=== PATIENT | male | born 1985 | race Caucasian/White ===

== ENCOUNTER 2022-02-21 14:29 | Outpatient (CLI) | payer BC, SELFPAY ==
[2022-02-21 20:09] LABS: Hemoglobin 16.8 g/dL (14.0-18.0); Mean Corpuscular Hemoglobin 31.6 pg (26-34); Mean Corpuscular Volume 90.4 fl (80-100); Mean Platelet Volume 10.3 fl (7.4-10.4); Platelet Count Result 303 k/mm3 (150-375); Red Blood Count 5.31 M/mm3 (4.6-6.20); Red Cell Distribution Width 12.7 % (11.5-14.5); White Blood Count 7.7 K/mm3 (4.5-10.0)
[2022-02-21 20:15] LABS: Alanine Aminotransferase 29 U/L (6-50); Alkaline Phosphatase 106 U/L (38-126); Anion Gap 10 mmol/L (8-16); Aspartate Amino Transferase 21 U/L (17-59); Bilirubin,Total 0.8 mg/dL (0.2-1.3); Blood Urea Nitrogen 11 mg/dL (9-20); Carbon Dioxide 26 mmol/L (22-30); Chloride 104 mmol/L (98-107); Cholesterol 219 mg/dL (0-200); Estimated Glomerular Filt Rate > 60; Glucose 93 mg/dL (65-110); HDL Direct 38 mg/dL; Potassium 4.7 mmol/L (3.4-5.0); Sodium 140 mmol/L (137-145); Triglycerides 220 mg/dL (<150)
[2022-02-21 20:25] LABS: LDL Cholesterol Direct 144 mg/dL
[2022-02-24 11:31] LABS: PSA, Free 0.18 ng/mL; PSA, Total 0.7 ng/mL (<=4.0)
== END 2022-02-21 14:30 | disposition home or self-care (01) ==
PROVIDERS: PCP Family Medicine; Visit Provider Family Medicine
DX: Z12.5 Encounter for screening for malignant neoplasm of prostate (principal); R35.0 Frequency of micturition; F41.9 Anxiety disorder, unspecified; G43.909 Migraine, unspecified, not intractable, without status migrainosus
CPT/HCPCS: 36415; 80053; 80061; 84153; 84154; 85027

== ENCOUNTER 2023-08-29 11:07 | Emergency (ER) | payer BC, SELFPAY ==
[2023-08-29 11:17] VITALS: BP 159/100; PULSE 85; RESP 18; TEMP 36.6; O2SAT 100
[2023-08-29 11:18] VITALS: BP 159/100; PULSE 85; RESP 18; TEMP 36.6; O2SAT 100
--- NOTE | 2023-08-29 11:27 | ED.ABDPAIN ---
HPI - Abdominal Pain General Chief Complaint: Abdominal Pain Stated Complaint: R SIDED ABD PAIN Time Seen by Provider: 08/29/23 11:27 Source: patient and RN notes reviewed Mode of arrival: ambulatory Limitations: no limitations History of Present Illness HPI narrative: 38-year-old male presented for complaint of intermittent right lower quadrant abdominal pain for about 5 days. Pain increases with certain movements such as coughing, bending over or with bumps on the car ride. Also reports the site is tender when he pushes on the area. He denies associated nausea, vomiting, diarrhea, fevers or chills. Denies history of abdominal surgeries. Last meal was last night. LBM today. Related Data Home Medications Medication Instructions Recorded Confirmed No Home Medications 08/29/23 08/29/23 Allergies Allergy/AdvReac Type Severity Reaction Status Date / Time No Known Allergies Allergy Unverified 08/05/18 14:57 Review of Systems Review of Systems: CONSTITUTIONAL: Denies body aches, fever, chills ENT: Denies rhinorrhea, congestion CARDIOVASCULAR: Denies chest pain, palpitations, or edema. RESPIRATORY: Denies cough or dyspnea. GASTROINTESTINAL: Endorses RLQ abdominal pain, Denies nausea, vomiting, diarrhea, hematochezia, melena GENITOURINARY: Denies dysuria, hematuria, or CVA tenderness. SKIN: Denies rash, itching, or wounds. MUSCULOSKELETAL: Denies back pain, joint pain, or myalgia. NEUROLOGIC: Denies headache, numbness, tingling, or weakness. All systems reviewed & are unremarkable except as noted in HPI and below PMFSH Past Medical History Medical History (Updated 08/29/23 @ 11:39 by Kierra Gómez APRN) No pertinent past medical history Comments At time of signature, I have reviewed and agree with nursing past medical, surgical, social and family history unless otherwise noted. Please see nursing chart for further information. There is no relevant family history pertinent to the presenting complaint Exam Narrative: GENERAL: Well-appearing, and in no acute distress. EYES: EOMI. Conjunctivae normal. ENT: Mucous membranes pink and moist. CHEST: No respiratory distress. Clear to auscultation. HEART: Regular rate and rhythm. No murmur appreciated. Normal peripheral pulses. ABDOMEN: abd soft, nondistended, hypo active bowel sounds. Tender abdomen RLQ; No guarding, rebound tenderness, asymmetry discoloration or rigidity. EXTREMITIES: Normal range of motion. No edema. SKIN: Warm, dry, no rash. Capillary refill normal. Normal skin turgor. NEURO: No focal deficits. Alert and oriented x3. PSYCH: Normal affect. Course Course Emergency Course: Patient is aware of diagnosis, understands and agrees to treatment plan. Anticipatory guidance given. Patient agrees to follow-up as directed and is aware of reasons to seek care at the emergency department. Portions of this record may have been created with voice recognition software Level of Care: Express Care Visit Vital Signs Vital signs: Vital Signs Temperature 97.9 F 08/29/23 11:17 Pulse Rate 85 08/29/23 11:17 Respiratory Rate 18 08/29/23 11:17 Blood Pressure 159/100 H 08/29/23 11:17 Pulse Oximetry 100 08/29/23 11:17 Oxygen Delivery Room Air 08/29/23 11:17 Temperature 97.9 F 08/29/23 11:18 Pulse Rate 85 08/29/23 11:18 Respiratory Rate 18 08/29/23 11:18 Blood Pressure 159/100 H 08/29/23 11:18 Pulse Oximetry 100 08/29/23 11:18 Oxygen Delivery Room Air 08/29/23 11:18 MDM - Abdominal Pain MDM Narrative Medical decision making narrative: Pt presented for c/o RLQ abdominal pain x5 days, worse with certain movements. Advised ER transfer for further evaluation. Differential Diagnosis Differential diagnosis: Likely abdominal pain, acute appendicitis, calculus of kidney, constipation, diverticulitis, gastroenteritis and small bowel obstruction Discharge Plan Discharge Clinical Impression: Ac
== END 2023-08-29 11:43 | disposition short-term general hospital (02) ==
PROVIDERS: Emergency Provider Nurse Practitioner Family
DX: R10.31 Right lower quadrant pain (principal); I10 Essential (primary) hypertension
CPT/HCPCS: 99212; G0463

== ENCOUNTER 2023-08-29 12:04 | Emergency (ER) | payer BC, SELFPAY ==
--- NOTE | ~2023-08-29 | CT_ITS ---
EXAMINATION: CT abdomen pelvis w con DATE: 08/29/2023 16:00 INDICATION: Right lower quadrant pain. TECHNIQUE: Computed tomography (CT) of the abdomen and pelvis was performed with 100 cc Omnipaque 350 intravenous contrast. The dose-length product was 962.52 mGy-cm. Automated exposure control and iter ative reconstruction technique were employed. COMPARISON: None. FINDINGS: There is a densely calcified granuloma right lower lobe. Otherwise, lung bases unremarkable . Heart size normal. No significant pleural or pericardial effusion. Normal appendix. Nonobstructive bowel gas pattern. Colonic diverticulosis without evidence for diverticulitis. No hydronephrosis. Sma ll fat-containing left inguinal hernia. The liver, spleen, pancreas, adrenal glands and kidneys are unremarkable. Gallbladder is present. No free air or free fluid. No significant vascular abnormality. No lymphadenopathy. No acute osseous abn ormality. IMPRESSION: 1. No acute abdominal abnormality. Reviewed, dictated and finalized at location B. INATION EQUIPMENT OPERATOR
[2023-08-29 12:20] VITALS: BP 174/97; PULSE 88; RESP 16; TEMP 36.9; O2SAT 100
--- NOTE | 2023-08-29 15:07 | ED.ABDPAIN ---
HPI - Abdominal Pain General Chief Complaint: Abdominal Pain Stated Complaint: abd pain Time Seen by Provider: 08/29/23 14:46 History of Present Illness HPI narrative: Patient is a 38-year-old male who presents ER with right lower quadrant abdominal pain. Ongoing for the last 4-5 days. Sharp. No radiation. Worse with going over bumps in the car and with bending and moving. Reports he has been doing some moving recently but does not recall any injury. No urinary symptoms. No diarrhea or constipation. He has felt bloated. Related Data Allergies Allergy/AdvReac Type Severity Reaction Status Date / Time No Known Allergies Allergy Unverified 08/05/18 14:57 Review of Systems Review of Systems: All systems reviewed & are unremarkable except as noted in HPI and below Constitutional: Constitutional: Reports no additional constitutional complaints ENT: Reports system reviewed and no additional complaints, except as documented Gastrointestinal: Gastrointestinal: Reports no additional gastrointestinal complaints Genitourinary: Genitourinary: Reports no additional male genitourinary complaints PMFSH Past Medical History Medical History (Updated 08/29/23 @ 16:29 by Mack Sims MD) No pertinent past medical history Surgical History Surgical History (Updated 08/29/23 @ 15:08 by Mack Sims MD) No history of previous surgery Exam Narrative: GENERAL: Well-appearing, well-nourished, and in no acute distress. HEAD: Normocephalic, atraumatic. ENT: Mucous membranes moist. CHEST: Clear to auscultation. No respiratory distress. HEART: Regular rate and rhythm. Normal peripheral pulses. ABDOMEN: Soft, mild tenderness bilateral lower quadrants right greater than nondistended. EXTREMITIES: Normal range of motion. No edema. NEURO: Alert and oriented x3. PSYCH: Normal mood and affect. Course Course Emergency Course: Unremarkable workup. May have muscle strain. Discharge home with anti-inflammatories muscle anxious. Vital Signs Vital signs: Vital Signs Temperature 98.4 F 08/29/23 12:20 Pulse Rate 88 08/29/23 12:20 Respiratory Rate 16 08/29/23 12:20 Blood Pressure 174/97 H 08/29/23 12:20 Pulse Oximetry 100 08/29/23 12:20 Oxygen Delivery Room Air 08/29/23 12:20 Temperature 98.4 F 08/29/23 12:20 Pulse Rate 88 08/29/23 12:20 Respiratory Rate 16 08/29/23 12:20 Blood Pressure 174/97 H 08/29/23 12:20 Pulse Oximetry 100 08/29/23 12:20 Oxygen Delivery Room Air 08/29/23 12:20 MDM - Abdominal Pain Lab Data 08/29/23 15:15 08/29/23 15:15 Labs: Lab Results 08/29/23 Range/Units 15:15 WBC 6.6 (4.5-10.0) K/mm3 RBC 5.05 (4.6-6.20) M/mm3 Hgb 16.1 (14.0-18.0) g/dL Hct 44.9 (42.0-52.0) % MCV 88.9 (80-100) fl MCH 31.9 (26-34) pg MCHC 35.9 (32-36) g/dl RDW 11.7 (11.5-14.5) % Plt Count 237 (150-375) k/mm3 MPV 10.7 H (7.4-10.4) fl Immature Gran % (Auto) 0.2 (0-0.5) % Neut % (Auto) 67.5 (45.5-73.1) % Lymph % (Auto) 24.9 (18.3-44.2) % Cross % (Auto) 5.6 (2.6-8.5) % Eos % (Auto) 1.5 (0-4.4) % Baso % (Auto) 0.3 (0.2-1.2) % Lymph # (Auto) 1.64 (0.9-3.2) K/mm3 Cross # (Auto) 0.4 (0.1-0.6) K/mm3 Eos # (Auto) 0.1 (0-0.3) K/mm3 Baso # (Auto) 0.0 (0.0-0.1) K/mm3 Abs Immat Gran (auto) 0.01 (0.00-0.031) K/mm3 Absolute Neuts (auto) 4.4 (1.3-6.7) K/mm3 Absolute Nucleated RBC 0.0 (0.0-0.012) K/mm3 Nucleated RBC % 0.0 (0.0-0.2) % Sodium 139 (137-145) mmol/L Potassium 3.8 (3.4-5.0) mmol/L Chloride 103 (98-107) mmol/L Carbon Dioxide 26 (22-30) mmol/L Anion Gap 10 (8-16) mmol/L BUN 11 (9-20) mg/dL Creatinine 0.80 (0.7-1.3) mg/dL Estim Creat Clear Calc 116 ml/min Estimated GFR > 60 (59 - ) Glucose 90 (65-110) mg/dL Calcium 9.6 (8.4-10.2) mg/dL Total Bilirubin 0.7 (0.2-1.3) mg/dL AST 26 (17-59) U/L ALT 33 (6-50) U/L Alkalin
[2023-08-29 15:31] LABS: Basophils Percent Auto 0.3 % (0.2-1.2); Eosinophils Absolute Auto 0.1 K/mm3 (0-0.3); Eosinophils Percent Auto 1.5 % (0-4.4); Hematocrit 44.9 % (42.0-52.0); Hemoglobin 16.1 g/dL (14.0-18.0); Immature Granulocyte Absolute 0.01 K/mm3 (0.00-0.031); Immature Granulocyte Percent A 0.2 % (0-0.5); Lymphocytes Absolute Auto 1.64 K/mm3 (0.9-3.2); Lymphocytes Percent Auto 24.9 % (18.3-44.2); Mean Corpuscular HGB Conc 35.9 g/dl (32-36); Mean Corpuscular Hemoglobin 31.9 pg (26-34); Mean Corpuscular Volume 88.9 fl (80-100); Mean Platelet Volume 10.7 fl (7.4-10.4); Monocytes Absolute Auto 0.4 K/mm3 (0.1-0.6); Monocytes Percent Auto 5.6 % (2.6-8.5); Neutrophils Absolute Auto 4.4 K/mm3 (1.3-6.7); Neutrophils Percent Auto 67.5 % (45.5-73.1); Platelet Count Result 237 k/mm3 (150-375); Red Blood Count 5.05 M/mm3 (4.6-6.20); Red Cell Distribution Width 11.7 % (11.5-14.5); White Blood Count 6.6 K/mm3 (4.5-10.0)
[2023-08-29 15:33] LABS: Appearance Urine Clear (Clear); Bilirubin Urine Negative (Negative); Blood Urine Negative (Negative); Color Urine Yellow (Yellow); Glucose Urine UA Negative (Negative); Ketones Urine Negative (Negative); Leukocyte Esterase Ur Negative LEU/UL (Negative); Nitrate Urine Negative (Negative); Protein Urine Negative (Negative); Specific Grav Ur 1.026 (1.001-1.035); Urobilinogen Urine 0.2 mg/dL (<2.0); pH Urine 5.5 (5.0-9.0)
[2023-08-29 15:37] LABS: Add Urine Microscopic? NO
[2023-08-29 15:46] LABS: Alanine Aminotransferase 33 U/L (6-50); Albumin Level 4.7 g/dL (3.5-5.1); Alkaline Phosphatase 86 U/L (38-126); Anion Gap 10 mmol/L (8-16); Aspartate Amino Transferase 26 U/L (17-59); Bilirubin,Total 0.7 mg/dL (0.2-1.3); Blood Urea Nitrogen 11 mg/dL (9-20); Calcium 9.6 mg/dL (8.4-10.2); Carbon Dioxide 26 mmol/L (22-30); Chloride 103 mmol/L (98-107); Estimated CRCL calculation 116 ml/min; Estimated Glomerular Filt Rate > 60; Glucose 90 mg/dL (65-110); Potassium 3.8 mmol/L (3.4-5.0); Sodium 139 mmol/L (137-145)
--- NOTE | 2023-08-29 15:50 | PC.NURSE ---
pt to ct via wheelchair.
== END 2023-08-29 16:38 | disposition home or self-care (01) ==
PROVIDERS: Emergency Provider Emergency Medicine
DX: S39.011A Strain of muscle, fascia and tendon of abdomen, initial encounter (principal); X58.XXXA Exposure to other specified factors, initial encounter
CPT/HCPCS: 36415; 74177; 80053; 81003; 85025; 99284; Q9967

== ENCOUNTER 2023-09-26 18:43 | Emergency (ER) | payer BC, SELFPAY ==
--- NOTE | ~2023-09-26 | CT_ITS ---
EXAMINATION: CT abdomen pelvis w con DATE: 09/26/2023 22:44 INDICATION: Left lower quadrant abdominal pain. TECHNIQUE: Computed tomography (CT) of the abdomen and pelvis was performed with 100 mL Omnipaque 350 intravenous contrast. Automated exposure control and iterative reconstruction technique were employe d. The dose-length product was 849.59 mGy-cm. COMPARISON: CT abdomen and pelvis 08/29/2023 FINDINGS: The visualized portions of the lung bases demonstrate mild atelectasis. A calcified right l srini nodule is consistent with old granulomatous disease. No pleural effusion. The heart size is sarah l. No pericardial effusion. The liver, gallbladder, spleen, pancreas, adrenal glands, and kidneys are normal. There are no dilated loops of bowel. The appendix is normal. There is fat stranding around a n epiploic appendage of descending colon, consistent with epiploic appendagitis. There are no patholo gically enlarged lymph nodes. There is no free intraperitoneal fluid. There is moderate lower lumbar spondylosis. IMPRESSION: 1. Epiploic appendagitis of descending colon. Reviewed, dictated and finalized at location E. DERRICK OPERATOR
[2023-09-26 18:48] VITALS: BP 180/91; PULSE 104; RESP 18; TEMP 36.8; O2SAT 100
[2023-09-26 22:16] VITALS: BP 164/105; PULSE 74; RESP 17; O2SAT 100
[2023-09-26 22:24] LABS: Basophils Percent Auto 0.4 % (0.2-1.2); Eosinophils Absolute Auto 0.2 K/mm3 (0-0.3); Eosinophils Percent Auto 1.9 % (0-4.4); Hematocrit 45.1 % (42.0-52.0); Hemoglobin 15.6 g/dL (14.0-18.0); Immature Granulocyte Absolute 0.01 K/mm3 (0.00-0.031); Immature Granulocyte Percent A 0.1 % (0-0.5); Lymphocytes Absolute Auto 2.43 K/mm3 (0.9-3.2); Lymphocytes Percent Auto 26.2 % (18.3-44.2); Mean Corpuscular HGB Conc 34.6 g/dl (32-36); Mean Corpuscular Hemoglobin 31.5 pg (26-34); Mean Corpuscular Volume 91.1 fl (80-100); Mean Platelet Volume 10.3 fl (7.4-10.4); Monocytes Absolute Auto 0.6 K/mm3 (0.1-0.6); Monocytes Percent Auto 6.2 % (2.6-8.5); Neutrophils Percent Auto 65.2 % (45.5-73.1); Platelet Count Result 245 k/mm3 (150-375); Red Blood Count 4.95 M/mm3 (4.6-6.20); Red Cell Distribution Width 12.3 % (11.5-14.5); White Blood Count 9.3 K/mm3 (4.5-10.0)
[2023-09-26 22:36] LABS: Alanine Aminotransferase 40 U/L (6-50); Albumin Level 4.5 g/dL (3.5-5.1); Alkaline Phosphatase 95 U/L (38-126); Anion Gap 10 mmol/L (8-16); Aspartate Amino Transferase 28 U/L (17-59); Bilirubin,Total 0.7 mg/dL (0.2-1.3); Blood Urea Nitrogen 14 mg/dL (9-20); Calcium 9.6 mg/dL (8.4-10.2); Carbon Dioxide 26 mmol/L (22-30); Chloride 103 mmol/L (98-107); Estimated CRCL calculation 99 ml/min; Estimated Glomerular Filt Rate > 60; Glucose 105 mg/dL (65-110); Lipase 127 U/L (23-300); Sodium 139 mmol/L (137-145)
[2023-09-26] MEDS: SODIUM CHLORIDE 0.9% IV 1,000 ML 999 ML IV CONT (22:53)
--- NOTE | 2023-09-26 22:54 | ED.GENADULT ---
[facility] General Adult General Chief complaint: Abdominal Pain Stated complaint: LLQ pain Time Seen by Provider: 09/26/23 22:07 Source: patient Mode of arrival: ambulatory Limitations: no limitations History of Present Illness HPI narrative: This is a 38-year-old male who presents to the ED with chief complaint of left lower quadrant pain beginning 2 days ago. Reports the pain is gotten worse today and he was unable to work. Reports that he had this problem few weeks ago and had negative workup. Denies problems with bowel movements, urinary symptoms, fevers, chills, nausea, vomiting. Related Data Allergies Allergy/AdvReac Type Severity Reaction Status Date / Time No Known Allergies Allergy Unverified 08/05/18 14:57 Review of Systems Review of Systems: All systems as dictated in [facility] Past Medical History Medical History (Updated 09/27/23 @ 01:26 by Nickolas Pedersen PA-C) No pertinent past medical history Surgical History Surgical History (Updated 08/29/23 @ 15:08 by Mack Sims MD) No history of previous surgery Exam Narrative: GENERAL: Well-appearing, well-nourished, and in no acute distress. HEAD: Normocephalic, atraumatic. EYES: PERRLA and EOMI. ENT: Nares clear, no rhinorrhea or epistaxis. Mucous membranes moist. Oropharynx without tonsillar hypertrophy exudate or other lesions. NECK: Supple. No adenopathy or masses. CHEST: No respiratory distress. Clear to auscultation. No wheezes rales or rhonchi HEART: Regular rate and rhythm. No murmur heard. Normal peripheral pulses. ABDOMEN: Left lower quadrant tenderness present. Soft, nondistended, normal active bowel sounds. MSK: Normal range of motion. No edema. SKIN: Warm, dry, no rash. NEURO: Alert and oriented x3. No focal deficits. PSYCH: Normal mood and affect. Course Vital Signs Vital signs: Vital Signs Temperature 98.3 F 09/26/23 18:48 Pulse Rate 104 H 09/26/23 18:48 Respiratory Rate 18 09/26/23 18:48 Blood Pressure 180/91 H 09/26/23 18:48 Pulse Oximetry 100 09/26/23 18:48 Temperature 98.3 F 09/26/23 18:48 Pulse Rate 91 09/27/23 01:34 Respiratory Rate 16 09/27/23 01:34 Blood Pressure 158/96 H 09/27/23 01:34 Pulse Oximetry 98 09/27/23 01:34 Medical Decision Making MDM Narrative Medical decision making narrative: This is a 38-year-old male who presents to the ED with chief complaint of left lower quadrant abdominal pain for the past couple of days. Vitals show initial slight tachycardia and elevated blood pressure likely due to pain. Afebrile. Exam shows focal left lower quadrant tenderness present. Lab work shows normal white count and a normal CMP. Urinalysis unremarkable. CT abdomen pelvis with IV contrast shows epiploic appendagitis of the descending colon. Overall this most likely relates with patient's symptoms. He was given Toradol and morphine here with good relief. We discussed that this should self resolve over the next couple of weeks with regular NSAID use. Pt will be discharged in stable condition. Return precautions given and supportive measures discussed. Pt is understanding and agreeable with plan for discharge and follow-up with PCP. Vital Signs Vital Signs: Vital Signs Temperature 98.3 F 09/26/23 18:48 Pulse Rate 104 H 09/26/23 18:48 Respiratory Rate 18 09/26/23 18:48 Blood Pressure 180/91 H 09/26/23 18:48 Pulse Oximetry 100 09/26/23 18:48 Temperature 98.3 F 09/26/23 18:48 Pulse Rate 91 09/27/23 01:34 Respiratory Rate 16 09/27/23 01:34 Blood Pressure 158/96 H 09/27/23 01:34 Pulse Oximetry 98 09/27/23 01:34 Lab Data 09/26/23 22:16 09/26/23 22:17 Labs: Lab Results 09/26/23 09/26/23 09/26/23 Range/Units 22:16 22:17 22:21 WBC 9.3 (4.5-10.0) K/mm3 RBC 4.95 (4.6-6.20) M/mm3 Hgb 15.6 (14.0-18.0) g/dL Hct 45.1 (42.0-52.0) % MCV 91.1 (80-100) fl MCH 31.5
[2023-09-26 23:05] LABS: Appearance Urine Clear (Clear); Bacteria Urine None Seen /hpf; Bilirubin Urine Negative (Negative); Blood Urine Negative (Negative); Color Urine Yellow (Yellow); Glucose Urine UA Negative (Negative); Ketones Urine Negative (Negative); Leukocyte Esterase Ur Trace LEU/UL (Negative); Nitrate Urine Negative (Negative); Non Pathogenic Casts 0-2; Protein Urine Trace mg/dL (Negative); RBC Urine 0-2 /hpf (0-2); Specific Grav Ur 1.034 (1.001-1.035); Squamous Epithelial Cell Urine None seen /hpf (Few)
[2023-09-26 23:08] LABS: Lactic Acid Reflex 0.9 mmol/L (0.7-2.0)
[2023-09-26] MEDS: KETOROLAC 15 MG/ML VIAL (*BKC) IV PUSH (23:14)
[2023-09-26 23:16] VITALS: BP 166/105; PULSE 72; RESP 16; O2SAT 100
[2023-09-26 23:17] LABS: Add Urine Microscopic? YES
--- NOTE | 2023-09-26 23:21 | PC.NURSE ---
gave pt care and report given to HEMAL Vasquez. all questions answered
[2023-09-26] MEDS: MORPHINE SULFATE (*CRX) 4 MG/ML INJ IV PUSH (23:40)
[2023-09-27 01:34] VITALS: BP 158/96; PULSE 91; RESP 16; O2SAT 98
== END 2023-09-27 01:35 | disposition home or self-care (01) ==
PROVIDERS: Emergency Provider Physician Assistant
DX: K63.89 Other specified diseases of intestine (principal)
CPT/HCPCS: 36415; 74177; 80053; 81001; 83605; 83690; 85025; 87086; 96361; 96374; 96375; 99284; J1885; J2270; J7030; Q9967

== ENCOUNTER 2024-10-08 15:18 | Emergency (ER) | payer BC, SELFPAY ==
[2024-10-08 15:19] VITALS: BP 150/115; PULSE 136; RESP 18; TEMP 38.9; O2SAT 95
--- NOTE | 2024-10-08 15:21 | PC.NURSE ---
covid culture sent to lab
--- OUTSIDE RECORDS SUMMARY | 2024-10-08 15:50 | XMS_ITS | Referral Summary ---
Author Organization [facility] Address [address] [place] [address] Care Team Providers Care Fur Plucker Name Role Phone No, Physician Primary Care Provider [phone] Allergies No known active allergies Medications ALPRAZolam (XANAX) 0.25 mg tablet Take 0.25 mg by mouth 2 (two) times a day as needed 11/22/2016 Active venlafaxine XR (EFFEXOR-XR) 75 mg 24 hr capsule Take 75 mg by mouth 06/11/2017 Active SUMAtriptan (IMITREX) 100 mg tablet Take 100 mg by mouth daily as needed 11/22/[address] (PROTONIX) 40 mg EC tablet Take 1 tablet (40 mg total) by mouth daily 30 tablet 11 06/13/2021 Active Active Problems Problem Noted Date Diagnosed Date BMI 33.0-33.9,adult 07/06/2021 Hepatomegaly 05/28/2021 Hepatic steatosis 05/28/2021 Epigastric pain 05/06/2021 Gastroesophageal reflux disease 05/06/2021 Hypersomnia 07/13/2015 Snoring 07/13/2015 Alcohol use 11/28/2012 Overview (05/06/2021): Binge pattern Chronic depression 11/28/2012 Overview (05/06/2021): Since childhood Anxiety and some panic zoloft at 50 mg didn't work Celexa 40 didn't work Euthyroid 03/2013 Migraine with aura and witho ut status migrainosus, not intractable 11/28/2012 Overview (05/06/2021): zoloft effective at prophylaxis. Lateral epicondylitis 01/12/2009 Overview (05/06/2021): Dr. Bhatia Essential hypertension 07/13/2008 Overview (04/29/2021): DASH diet handout 08/10 Family history of colon cancer 07/13/2008 Overview (05/06/2021): Sister age 16 Patellofemoral pain syndrome 07/13/2008 Resolved Problems Problem Noted Date Diagnosed Date Resolved Date Hematemesis with nausea 05/18/202111/2020 Loose stools 05/06/2021 07/06/2021 Tobacco use disorder 07/13/2008 021 Social History Tobacco Use Types Packs/Day Years Used Date Smoking Tobacco: Never Smokeless Tobacco: Never Alcohol Use Standard Drinks/Week Comments Not Currently 0 (1 standard drink = 0.6 oz pur e alcohol) AUDIT-C Answer Date Recorded Q1: How often do you have a drink containing alc ohol? Never 06/10/2021 Average Number of Drinks Not on file 021 Frequency of Binge Drinking Not on file 04/2021 Personal Safety Answer Date Recorded Getting School Help Needed Not on file 11/03 Sex and Gender Information Value Date Recorded Sex Assigned at Not on file Legal Sex Male 8:37 AM CDT Gender Identity Male 05/27/2021 8:59 AM CDT Sexual Orientation Not on file Last Filed Vital Signs Vital Sign Reading Time Taken Comments Blood Pressure 118/82 07/06/2021 8:59 AM CDT Pulse 92 07/06/2021 8:59 AM CDT Temperature 36.6 C (97.8 F) 06/10/2021 1:00 PM CDT Respiratory Rate 18 06/10/2021 1:00 PM CDT Oxygen Saturation 99% 07/06/2021 8:59 AM CDT Inhaled Oxygen Concentration - - Weight 94.9 kg (209 lb 3.2 oz) 07/06/2021 8:59 A M CDT Height 167.6 cm (5' 6 ) 07/06/2021 8:59 AM CDT Body Mass Index 33.77 07/06/2021 8:59 AM CDT Plan of Treatment Not on file Insurance [facility] Advance Directives For more information, please contact: [phone] * Full Code (Latest Code Status on File) Date Activated Date Inactivated Comments 06/10/2021 11:26 AM 06/10/2021 5:25 PM * Full Code Date Activated Date Inactivated Comments 06/10/2021 11:26 AM 06/10/2021 11:26 AM Care Teams Fur Plucker Relationship Specialty Start Date End Date No, Physician PCP - General 04/29/21
--- OUTSIDE RECORDS SUMMARY | 2024-10-08 15:50 | XMS_ITS | Encounter Summary ---
Author Organization [facility] Health Address [address] [place] [address] Care Team Providers Care Shopping Inspector Name Role Phone Nopcp, Patient Primary Care Provider Unavailterri e Ronal Elizondo MD Primary Care Provider [phone] Ronal Elizondo MD Unavailable [phone] Encounter Details Date Type Department Care Team (Late st Contact Info) Description 02/08/2009 [facility] Outpatient Visit [facility] Default [address] [place] [id number] Unknown, Provider Social History Tobacco Use Types Packs/Day Years Used Date Smoking Tobacco: Every Day Cigarettes 1 9 Alcohol Use Standard Drinks/Week Comments Yes 0 (1 standard drink = 0.6 oz pur e alcohol) Sex and Gender Information Value Date Recorded Sex Assigned at Not on file Gender Identity Not on file Sexual Orientation Not on file documented as of this encounter Plan of Treatment Not on file documented as of this encounter Visit Diagnoses Not on filedocumented in this encounter Care Teams Shopping Inspector Relationship Specialty Start Date End Date Nopcp, Patient PCP - General 04/01/09 04/01/09 Ronal Elizondo MD [address] [place] [address] PCP - General 09/21/08 03/31/09 Ronal Elizondo MD [address] [place] [address] PCP - Attributed-Exclusive Choice 02/16/17 06/10/18 documented as of this encounter
--- OUTSIDE RECORDS SUMMARY | 2024-10-08 15:50 | XMS_ITS | Referral Summary ---
Author Organization [facility] Address [address] [place] [address] Care Team Providers Care [employer] Name Role Phone Unavailable Primary Care Provider Unavailabl e Source Comments [facility],non-owned Affiliates and Associated Physician Practices is amultiple site organization consisting of ambulatory clinics and hospital sitesin [place], [place], [place]. This disclosure is being madepursuant to the Care Everywhere program and may not contain all information available regarding this patient. Last updated 18.PAX Streamline Allergies No known active allergies Medications * Be aware that medications may not be up to date on this document. Alwaysverify current medications with the patient. Medication Sig Dispensed Refills Start Date End Date Status ALPRAZolam (XANAX) 0.25 MG tablet Take 1 Tab by mouth 2 times daily as needed For anxiety. 30 Tab 11/22/2016 Active Additional Information Patient not taking.Reported on 10/09/2023 SUMAtriptan (IMITREX) 100 MG tabletIndications:Mi graine Take 1 Tab by mouth once as needed for Migraine May repeat in 2 hours. Maximum 2 pills in 24 hours Reasons: Migraine Headache 9 Tab 5 11/22/2016 Active Additional Information Patient not taking.Reported on 10/09/2023 venlafaxine XR 24hr (EFFEXOR XR) 75 MG capsule Take 1 Cap by mouth daily with breakfast 90 Cap 1 06/11/2017 Active Additional Information Patient not taking.Reported on 10/09/2023 venlafaxine XR 24hr (EFFEXOR XR) 150 MG capsule Take 1 Cap by mouth daily with breakfast 90 Cap 1 06/11/2017 Active Additional Information Patient not taking.Reported on 10/09/2023 losartan (Cozaar) 25 MG tablet Take 1 (one) tablet by mouth once daily Active Active Problems Problem Noted Date Diagnosed Date Hypersomnia 07/13/2015 Snoring 07/13/2015 Alcohol use 11/28/2012 Overview (11/28/2012): Binge pattern Chronic depression 11/28/2012 Overview (11/20/2013): Since childhood Anxiety and some panic zoloft at 50 mg didn't work Celexa 40 didn't work Euthyroid 03/2013 Migraine with aura and witho ut status migrainosus, not intractable 11/28/2012 Overview (03/27/2013): zoloft effective at prophylaxis. Lateral epicondylitis 01/12/2009 Overview (01/12/2009): Dr. Bhatia Essential hypertension 07/13/2008 Overview (01/12/2009): [facility]ASH diet handout 08/10 Patellofemoral pain syndrome 07/13/2008 Tobacco use disorder 07/13/2008 Family history of colon cancer 07/13/2008 Overview (07/13/2008): Sister age 16 Resolved Problems Problem Noted Date Diagnosed Date Resolved Date Educational circumstance 07/13/200806/2015 Overview (07/13/2008): 8th grade education Immunizations Name Administration Dates Next Due INFLUENZA VACCINE, TRIV. (AF LURIA, FLUZONE TRIVALENT; 6MO+) (IIV3) 05/16/2013,05/25/2011 FLU VACCINE QUAD IIV4 PF ID 06/11/2015 INFLUENZA VACCINE, QUADR. (F LUZONE; FLULAVAL; FLUARIX; AFLURIA QUADRIVALENT; 6MO+), 0.5 ML (IIV4) 08/14/2014 PNEUMOCOCCAL PPSV23 11/28/2012 TD VACCINE 09/03/2002 TDAP (7yrs+) 05/25/2011 Social History Tobacco Use Types Packs/Day Years Used Date Smoking Tobacco: Every Day Cigarettes 0.5 9 Smokeless Tobacco: Former Quit: 06/03/2012 Tobacco Cessation:Ready to Q uit: Not Asked; Counseling Given: Not Answered Alcohol Use Standard Drinks/Week Comments Yes 4 (1 standard drink = 0.6 oz pure alcohol) 12 beer in 1 day every other week. Sex and Gender Information Value Date Recorded Sex Assigned at Not on file Gender Identity Not on file Sexual Orientation Not on file Last Filed Vital Signs Vital Sign Reading Time Taken Comments Blood Pressure 153/101 10/09/2023 11:34 AM GHOST WRITER Pulse 92 10/09/2023 11:34 AM GHOST WRITER Temperature 36.6 C (97.9 F) 10/09/2023 11:34 AM GHOST WRITER Respiratory Rate 16 12/05/2016 8:57 AM CDT Oxygen Saturation 98% 10/09/2023 11:34 AM GHOST WRITER Inhaled Oxygen Concentration - - Weight 97.5 kg (215 lb) 10/09/2023 11:34 AM GHOST WRITER Height 167.6 cm (5' 6 ) 10/09/2023 11:34 AM GHOST WRITER Body Mass Index 34.7 10/09/2023 11:34 AM GHOST WRITER Functional Status Functional Status Response Date of Assess ment Is person deaf or have serious hearing difficult y? No 12/05/2016 Is person blind or have serious difficulty seein g? No 12/05/2016 Does person have serious dif ficulty walking/climbing stairs? No 12/05/2016 Does person have difficulty dressing/bathing? No 12/05/2016 Does person have difficulty doing errands alone? No 12/05/2016 Cognitive Status Response Date of Assessm ent Does person have difficulty concentrating/remembering/making decisions? No 12/05/2016 Plan of Treatment Not on file Goals Goal Patient Goal Type Associated Problems Recent Progress Patient-Stated? Author Quit smoking / using tobacco Lifestyle Not on track(02/15/20 16 10:32 AM CDT) No Flaquita Decker MA Procedures Procedure Name Priority Date/Time Associated Diagnosis Comments COMPREHENSIVE METABOLIC PANEL Routine 02/15/2016 11:07 AM CDT Hypersomnia Chronic depression Migraine with aura and without status migrainosus, not intractable Tobacco use disorder Essential hypertension with goal blood pressure less than 140/90 LIPID PROFILE Routine 02/15/2016 11:07 AM CDT Hypersomnia Chronic depression Migraine with aura and without status migrainosus, not intractable Tobacco use disorder Essential hypertension with goal blood pressure less than 140/90 from Last 3 Months or Most Recently Relevant to Health Maintenance Results * COMPREHENSIVE METABOLIC PANEL (02/15/2016 11:07 AM CDT) Glucose 93 74 - 106 mg/dL [facility] ACCOUNT BILL BUN 10 7 - 21 mg/dL [facility] ACCOUNT BILL Creatinine 0.84 0.50 - 1.30 mg/dL [facility] ACCOUNT BILL eGFR by MDRD >60 >60 mL/min/1.7 3m2 [facility] ACCOUNT BILL eGFR by MDRD >60 >60 mL/min/1.7 3m2 [facility] ACCOUNT BILL Sodium 139 136 - 145 mmol/L [facility] ACCOUNT BILL Potassium 4.5 3.5 - 5.1 mmol/L [facility] ACCOUNT BILL Chloride 105 98 - 107 mmol/L [facility] ACCOUNT BILL CO2 27 22 - 31 mmol/L [facility] ACCOUNT BILL Calcium 9.6 8.5 - 10.1 mg/dL [facility] ACCOUNT BILL Protein Total 7.5 6.4 - 8.2 gm/dL [facility] ACCOUNT BILL Albumin 4.2 3.4 - 5.0 gm/dL [facility] ACCOUNT BILL Bilirubin Total 0.6 0.2 - 1.0 mg/dL [facility] ACCOUNT BILL Alkaline Phosphatase 91 38 - 126 U/L [facility] ACCOUNT BILL AST 13 5 - 40 U/L [facility] ACCOUNT BILL ALT 25 12 - 78 U/L [facility] ACCOUNT BILL Blood specimen (specimen) BLOOD SPECIMEN / Unknown 02/15/2016 11:07 AM CDT 02/15/2016 12:59 PM CDT Narrative Resulting Agency Comment [facility] [address] [id number] Ronal Elizondo MD LAB - CHEMISTRY HAROON ZHOU [facility] ACCOUNT BILL [address] [place] [address] * (ABNORMAL) LIPID PROFILE (02/15/2016 11:07 AM CDT) Cholesterol 188 <200 mg/dL [facility] ACCOUNT BILL Triglycerides 174(H) <150 mg/dL [facility] ACCOUNT BILL HDL Cholesterol 38(L) >40 mg/dL [facility] ACCOUNT BILL VLDL Calculated 35(H) <=30 mg/dL [facility] ACCOUNT BILL LDL Calculated 115 <130 mg/dL [facility] ACCOUNT BILL Blood specimen (specimen) BLOOD SPECIMEN / Unknown 02/15/2016 11:07 AM CDT 02/15/2016 12:59 PM CDT Narrative Resulting Agency Comment [facility] [address] [id number] Ronal Elizondo MD LAB - CHEMISTRY HAROON [facility]HOU [facility] ACCOUNT BILL [address] [place] [address] from Last 3 Months or Most Recently Relevant to Health Maintenance Advance Directives * Full Code (Latest Code Status on File) Date Activated Date Inactivated Comments 05/25/2011 10:27 AM Unplug if lilly PADILLA is Kenyetta Decker. Would do organ donation.
--- OUTSIDE RECORDS SUMMARY | 2024-10-08 15:50 | XMS_ITS | Patient Health Summary ---
Author Organization [facility] Address [address] [place] [address] Care Team Providers Care Digital Field Service Technician Name Role Phone Unavailable Primary Care Provider Unavailabl e Note from [facility],non-owned Affiliates and Associated Physician Practices is amultiple site organization consisting of ambulatory clinics and hospital sitesin [place], [place], [place] and [place]. This disclosure is being madepursuant to the Care Everywhere program and may not contain all information available regarding this patient. Last updated 18.[facility] Allergies No known active allergies Medications * Be aware that medications may not be up to date on this document. Alwaysverify current medications with the patient. * ALPRAZolam (XANAX) 0.25 MG tablet(Started 11/22/2016) Take 1 Tab by mouth 2 times daily as needed For anxiety. * SUMAtriptan (IMITREX) 100 MG tablet(Started 11/22/2016) Take 1 Tab by mouth once as needed for Migraine May repeat in 2 hours. Maximum 2 pills in 24 hours Reasons: Migraine Headache 5 refills remaining * venlafaxine XR 24hr (EFFEXOR XR) 75 MG capsule(Started 06/11/2017) Take 1 Cap by mouth daily with breakfast 1 refill remaining * venlafaxine XR 24hr (EFFEXOR XR) 150 MG capsule(Started 06/11/2017) Take 1 Cap by mouth daily with breakfast 1 refill remaining * losartan (Cozaar) 25 MG tablet Take 1 (one) tablet by mouth once daily Active Problems Problem Noted Date Diagnosed Date Hypersomnia 07/13/2015 Snoring 07/13/2015 Alcohol use 11/28/2012 Chronic depression 11/28/2012 Migraine with aura and witho ut status migrainosus, not intractable 11/28/2012 Lateral epicondylitis 01/12/2009 Essential hypertension 07/13/2008 Patellofemoral pain syndrome 07/13/2008 Tobacco use disorder 07/13/2008 Family history of colon cancer 07/13/2008 Resolved Problems Problem Noted Date Diagnosed Date Resolved Date Educational circumstance 07/13/200806/2015 Immunizations * INFLUENZA VACCINE, TRIV. (AFLURIA, FLUZONE TRIVALENT; 6MO+) (IIV3)(Given 05/16/2013, 05/25/2011) * FLU VACCINE QUAD IIV4 PF ID(Given 06/11/2015) * INFLUENZA VACCINE, QUADR. (FLUZONE; FLULAVAL; FLUARIX; AFLURIA QUADRIVALENT; 6MO+), 0.5 ML (IIV4)(Given 08/14/2014) * PNEUMOCOCCAL PPSV23(Given 11/28/2012) * TD VACCINE(Given 09/03/2002) * TDAP (7yrs+)(Given 05/25/2011) Social History Tobacco Use Types Packs/Day Years [...] Comments Blood Pressure 153/101 10/09/2023 11:34 AM TEST INSPECTION ENGINEER Pulse 92 10/09/2023 11:34 AM TEST INSPECTION ENGINEER Temperature 36.6 C (97.9 F) 10/09/2023 11:34 AM TEST INSPECTION ENGINEER Respiratory Rate 16 12/05/2016 8:57 AM CDT Oxygen Saturation 98% 10/09/2023 11:34 AM TEST INSPECTION ENGINEER Inhaled Oxygen Concentration - - Weight 97.5 kg (215 lb) 10/09/2023 11:34 AM TEST INSPECTION ENGINEER Height 167.6 cm (5' 6 ) 10/09/2023 11:34 AM TEST INSPECTION ENGINEER Body Mass Index 34.7 10/09/2023 11:34 AM TEST INSPECTION ENGINEER Procedures * CARDIAC RHYTHM STRIP ORDER(Performed 12/06/2016) * OXYGEN(Performed 12/05/2016) * RELEASE CARPAL TUNNEL(Performed 12/05/2016) Performed for Carpal tunnel syndrome of right wrist * AMB REFERRAL TO NEUROSURGERY(Performed 11/08/2016) Performed for Bilateral carpal tunnel syndrome * EMG(Performed 10/10/2016) Performed for Right arm numbness * LIPID PROFILE(Performed 02/15/2016) Performed for Hypersomnia, Chronic depression, Migraine with aura and without status migrainosus, not intractable, Tobacco use disorder, Essential hypertension with goal blood pressure less than 140/90 * CBC W AUTO DIFFERENTIAL(Performed 02/15/2016) Performed for Hypersomnia, Chronic depression, Migraine with aura and without status migrainosus, not intractable, Tobacco use disorder, Essential hypertension with goal blood pressure less than 140/90 * COMPREHENSIVE METABOLIC PANEL(Performed 02/15/2016) Performed for Hypersomnia, Chronic depression, Migraine with aura and without status migrainosus, not intractable, Tobacco use disorder, Essential hypertension with goal blood pressure less than 140/90 * MRI UPPER EXT ANY JOINT NON CONTRAST RIGHT(Performed 03/11/2015) Performed for Scaphoid fracture of wrist, right, closed, initial encounter * CT HEAD WO CONTRAST(Performed 03/05/2015) * XR WRIST RIGHT 3VW OR MORE(Performed 03/05/2015) * PATHOLOGY/CYTOLOGY REPORT ORDER(Performed 02/10/2015) * CBC W AUTO DIFFERENTIAL(Performed 02/05/2015) Performed for Sleep apnea, Flushing, Tobacco use disorder, Chronic depression, Bilateral carpal tunnel syndrome, Prehypertension * COMPREHENSIVE METABOLIC PANEL(Performed 02/05/2015) Performed for Sleep apnea, Flushing, Tobacco use disorder, Chronic depression, Bilateral carpal tunnel syndrome, Prehypertension * LIPID PROFILE(Performed 02/05/2015) Performed for Sleep apnea, Flushing, Tobacco use disorder, Chronic depression, Bilateral carpal tunnel syndrome, Prehypertension * COLONOSCOPY SCREEN(Performed 06/12/2014) * ENDOSCOPY, COLON, SCREENING(Performed 06/12/2014) * URINALYSIS NO MICROSCOPIC NO CULTURE(Performed 03/27/2013) Performed for Need for pneumococcal vaccine, Prehypertension, Tobacco use disorder, Chronic depression, Classic migraine * CBC W AUTO DIFFERENTIAL(Performed 03/27/2013) Performed for Need for pneumococcal vaccine, Prehypertension, Tobacco use disorder, Chronic depression, Classic migraine * TSH HI LOW REFLEX FREE T4(Performed 03/27/2013) Performed for Need for pneumococcal vaccine, Prehypertension, Tobacco use disorder, Chronic depression, Classic migraine * COMPREHENSIVE METABOLIC PANEL(Performed 03/27/2013) Performed for Need for pneumococcal vaccine, Prehypertension, Tobacco use disorder, Chronic depression, Classic migraine * LIPID PROFILE(Performed 05/25/2011) Performed for Need for influenza vaccine, Need for vaccine for TD (tetanus- diphtheria), Prehypertension, Tobacco use disorder, Lipid screening, Routine general medical examination at a health care facility, Furunculosis * URINALYSIS NO MICROSCOPIC NO CULTURE(Performed 05/25/2011) Performed for Need for influenza vaccine, Need for vaccine for TD (tetanus- diphtheria), Prehypertension, Tobacco use disorder, Lipid screening, Routine general medical examination at a health care facility, Furunculosis * CBC W AUTO DIFFERENTIAL(Performed 05/25/2011) Performed for Need for influenza vaccine, Need for vaccine for TD (tetanus- diphtheria), Prehypertension, Tobacco use disorder, Lipid screening, Routine general medical examination at a health care facility, Furunculosis * COMPREHENSIVE METABOLIC PANEL(Performed 05/25/2011) Performed for Need for influenza vaccine, Need for vaccine for TD (tetanus- diphtheria), Prehypertension, Tobacco use disorder, Lipid screening, Routine general medical examination at a health care facility, Furunculosis * CULTURE AEROBIC+GRAM STAIN(Performed 05/25/2011) Performed for Furunculosis * CULTURE STREP GROUP A(Performed 06/27/2009) * GROSS + MICRO EXAM(Performed 04/02/2009) Performed for Unspecified Cystitis * ENDOSCOPY, COLON, SCREENING(Performed 02/03/2009) Results * CARDIAC RHYTHM STRIP ORDER (12/06/2016 9:28 PM CDT) Narrative 12/06/2016 9:28 PM CDT Ordered by an unspecified provider. Scanned Document CARDIAC SERVICES ORD ERABLES * AMB REFERRAL TO NEUROSURGERY (11/08/2016 4:02 PM TEST INSPECTION ENGINEER) Ronal Elizondo MD OUTPATIENT REFERRALS * EMG (10/10/2016 9:04 PM TEST INSPECTION ENGINEER) Ronal Elizondo MD NEUROLOGY ORDERABLES * (ABNORMAL) CBC W AUTO DIFFERENTIAL (02/15/2016 11:07 AM CDT) Only the most recent of4 resultswithin the time period is included. WBC 6.8 4.4 - 10.7 x10E9/L [facility] ACCOUNT BILL RBC 4.83 3.80 - 5.40 x10E12/L [facility] ACCOUNT BILL Hemoglobin 15.5 12.0 - 17.6 gm/dL [facility] ACCOUNT BILL Hematocrit 44.3 35.2 - 51.7 % [facility] ACCOUNT BILL MCV 91.7 80.7 - 98.3 fL [facility] ACCOUNT BILL MCH 32.1 26.7 - 34.0 pg [facility] ACCOUNT BILL MCHC 35.0 30.8 - 35.9 gm/dL [facility] ACCOUNT BILL RDW 11.9(L) 12.1 - 14.9 % [facility] ACCOUNT BILL Platelet Count 232 153 - 416 x10E9/L [facility] ACCOUNT BILL Comment:MPV FL BLOOD (SSM) 1 0.8 fl 9.4-12.9 Granulocytes % 69.1 44.0 - 73.0 % [facility] ACCOUNT BILL Lymphocytes % 22.2 20.0 - 43.0 % [facility] ACCOUNT BILL Monocytes % 5.6 5.0 - 13.0 % [facility] ACCOUNT BILL Eosinophils % 2.2 0.0 - 6.0 % [facility] ACCOUNT BILL Basophils % 0.6 0.0 - 2.0 % [facility] ACCOUNT BILL Granulocytes Absolute 4.69 2.01 - 7.14 x10E9/L [facility] ACCOUNT BILL Lymphocytes Absolute 1.51 1.07 - 3.94 x10E9/L [facility] ACCOUNT BILL Monocytes Absolute 0.38 0.26 - 1.07 x10E9/L [facility] ACCOUNT BILL Eosinophils Absolute 0.15 0 - 0.47 x10E9/L [facility] ACCOUNT BILL Basophils Absolute 0.04 0 - 0.08 x10E9/L [facility] ACCOUNT BILL Immature Granulocytes 0.3 0 - 1 % [facility] ACCOUNT BILL Immature Granulocytes Absolute 0.02 0.00 - 0.06 x10E9/L [facility] ACCOUNT BILL nRBC 0 /100 WBC [facility] ACCOUNT BILL Blood specimen (specimen) BLOOD SPECIMEN / Unknown 02/15/2016 11:07 AM CDT 02/15/2016 12:59 PM CDT Narrative Resulting Agency Comment [facility] [address] [place] [address] [id number] Ronal Elizondo MD LAB - HEMATOLOGY ARRON ESPINO [facility] ACCOUNT BILL [address] [place] [address] * COMPREHENSIVE METABOLIC PANEL (02/15/2016 11:07 AM CDT) Only the most recent of4 resultswithin the time period is included. Glucose 93 74 - 106 mg/dL [facility] [...] 12:59 PM CDT Narrative Resulting Agency Comment [facility] [address] [place] [address] [id number] Ronal Elizondo MD LAB - CHEMISTRY HAROON ZHOU [facility] ACCOUNT BILL [address] [place] [address] * (ABNORMAL) LIPID PROFILE (02/15/2016 11:07 AM CDT) Only the most recent of3 resultswithin the time period is included. Cholesterol 188 <200 mg/dL [facility] ACCOUNT BILL Triglycerides 174(H) <150 mg/dL [facility] ACCOUNT BILL HDL Cholesterol 38(L) >40 mg/dL [facility] ACCOUNT BILL VLDL Calculated 35(H) <=30 mg/dL [facility] ACCOUNT BILL LDL Calculated 115 <130 mg/dL [facility] ACCOUNT BILL Blood specimen (specimen) BLOOD SPECIMEN / Unknown 02/15/2016 11:07 AM CDT 02/15/2016 12:59 PM CDT Narrative Resulting Agency Comment [facility] [address] [facility] [id number] Ronal Elizondo MD LAB - CHEMISTRY HAROON ZHOU [facility] ACCOUNT BILL [address] [place] [address] * MRI UPPER EXT ANY JOINT NON CONTRAST RIGHT (03/11/2015 8:26 AM CDT) Anatomical Region Laterality Modality Upper Extremity Magnetic Resonan ce 03/11/2015 2:59 PM CDT Impressions 03/11/2015 3:27 PM CDT 1. No MR evidence of acute fracture of the right wrist. Specifically, the scaphoid is intact. 2. There is mild edema within the volar aspect of the lunate which could represent an osseous contusion. 3. The central triangular fibers of the scapholunate ligament are irregular which could represent a tear. The dorsal and volar fibers appear intact without evidence of scapholunate diastases. If indicated, this could be further evaluated with arthrography. Narrative 03/11/2015 3:27 PM CDT Examination: MRI of the right wrist without contrast History: Right wrist pain and concern for scaphoid fracture. Findings: MRI of the right wrist was performed without intravenous contrast. Axial, and sagittal, and coronal short TR/TE and fast spin-echo images as well as coronal gradient recalled echo images were obtained. No radiographs are available for comparison. The patient's site of pain was marked with an MR compatible marker along the radial aspect of the wrist. There is marrow edema within the volar lip of the lunate without linear T1 hypointensity to suggest fracture. There is no marrow edema within the scaphoid to suggest acute scaphoid fracture. No acute fracture of the wrist is seen. On this non-arthrographic examination, the dorsal and volar fibers of the scapholunate ligament appear intact. There is irregularity of the central triangular portions of the scapholunate ligament which may indicate a tear. No scapholunate diastases is seen. The lunatotriquetral ligaments appear intact. Visualized extrinsic ligaments of the wrist appear intact. The triangular fibrocartilage appears intact. No definite focal chondrosis of the wrist is seen. The carpal tunnel and flexor tendons appear normal. The extensor tendons appear intact. No ganglion cyst is identified. There is mild soft tissue edema along the dorsal aspect of the wrist. Procedure Note Alex Winn MD - 03/11/2015 Examination: MRI of the right wrist without contrast History: Right wrist pain and concern for scaphoid fracture. Findings: MRI of the right wrist was performed without intravenous contrast. Axial, and sagittal, and coronal short TR/TE and fast spin-echo images as well as coronal gradient recalled echo images were obtained. No radiographs are available for comparison. The patient's site of pain was marked with an MR compatible marker along the radial aspect of the wrist. There is marrow edema within the volar lip of the lunate without linear T1 hypointensity to suggest fracture. There is no marrow edema within the scaphoid to suggest acute scaphoid fracture. No acute fracture of the wrist is seen. On this non-arthrographic examination, the dorsal and volar fibers of the scapholunate ligament appear intact. There is irregularity of the central triangular portions of the scapholunate ligament which may indicate a tear. No scapholunate diastases is seen. The lunatotriquetral ligaments appear intact. Visualized extrinsic ligaments of the wrist appear intact. The triangular fibrocartilage appears intact. No definite focal chondrosis of the wrist is seen. The carpal tunnel and flexor tendons appear normal. The extensor tendons appear intact. No ganglion cyst is identified. There is mild soft tissue edema along the dorsal aspect of the wrist. IMPRESSION 1. No MR evidence of acute fracture of the right wrist. Specifically, the scaphoid is intact. 2. There is mild edema within the volar aspect of the lunate which could represent an osseous contusion. 3. The central triangular fibers of the scapholunate ligament are irregular which could represent a tear. The dorsal and volar fibers appear intact without evidence of scapholunate diastases. If indicated, this could be further evaluated with arthrography. Remigio Herrera MD MR ORDERABLES * CT HEAD NON CONTRAST (03/05/2015) Anatomical Region Laterality Modality Head Other Provider Unknown CT ORDERABLES * XR WRIST 3+ VW RIGHT (03/05/2015) Anatomical Region Laterality Modality Wrist / Hand Other Provider Unknown DIAGNOSTIC IMAGING O RDERABLES * PATHOLOGY/CYTOLOGY REPORT ORDER (02/10/2015) Shayne Alvarado MD LAB - PATHOLOGY/CYTO LOGY ORDERABLES * ENDOSCOPY, COLON, SCREENING (06/12/2014 9:29 AM CDT) Report Endoscopy POC __ _ Patient Name: Andrew Decker Procedure Date: 06/12/2014 9:29 AM Date of : 1985 Admit Type: Outpatient Age: 28 Gender: Male Attending MD: Kike Canales MD __ _ Procedure: Colonoscopy Indications: FH of Colon Cancer - 1st degree relative Providers: Kike Canales MD (Doctor), Alejandrina Yanez RN, Kami Dewitt, Gas Engine Repairer Referring MD: Ronal Elizondo MD (Referring MD) Medicines: Monitored Anesthesia Care Complications: No immediate complications. __ _ Procedure: Pre-Anesthesia Assessment: - ASA Grade Assessment: II - A patient with mild systemic disease. - Airway Examination: Mallampati Class I (tonsillar pillars visualized). After I obtained informed consent, the scope was passed under direct vision. Throughout the procedure, the patient's blood pressure, pulse, and oxygen saturations were monitored continuously. The Colonoscope was introduced through the anus and advanced to the cecum, identified by appendiceal orifice and ileocecal valve. The colonoscopy was performed without difficulty. The patient tolerated the procedure well. The quality of the bowel preparation was good. Impression: - The entire examined colon is normal. Findings: The colon (entire examined portion) appeared normal. __ _ Recommendation: - Repeat colonoscopy in 5 years for screening purposes. Procedure Code(s): --- Professional --- 81147, Colonoscopy, flexible, proximal to splenic flexure; diagnostic, with or without collection of specimen(s) by brushing or washing, with or without colon decompression (separate procedure) --- Technical --- 55010, Colonoscopy, flexible, proximal to splenic flexure; diagnostic, with or without collection of specimen(s) by brushing or washing, with or without colon decompression (separate procedure) Diagnosis Code(s): --- Professional --- V16.0, Family history of malignant neoplasm of gastrointestinal tract --- Technical --- V16.0, Family history of malignant neoplasm of gastrointestinal tract CPT copyright 2013 [employer]. All rights reserved. The codes documented in this report are preliminary and upon silverware washer review may be revised to meet current compliance requirements. Kike Canales MD 06/12/2014 9:50 AM This report has been signed electronically. Number of Addenda: 0 Note Initiated On: 06/12/2014 9:29 AM [facility] 06/12/2014 9:29 AM CDT Kike Canales MD GI PROCEDURE ORDERAB LES [facility] * TSH HI LOW REFLEX FREE T4 (PO REF LAB) (03/27/2013 4:55 PM CDT) TSH 2.580 0.450 - 4.500 uIU/mL [facility] ACCOUNT BILL BLOOD SPECIMEN / Unknown 03/27/2013 4:55 PM CDT 03/27/2013 6:16 PM CDT Narrative Resulting Agency Comment [facility] [address] [id number] Ronal Elizondo MD LAB - CHEMISTRY HAROON ZHOU [facility] ACCOUNT BILL * URINALYSIS DIPSTICK AUTO (03/27/2013 4:55 PM CDT) Only the most recent of2 resultswithin the time period is included. Specific [place] UA 1.029 1.005 - 1.030 [facility] ACCOUNT BILL pH UA 5.5 5.0 - 7.5 [facility] ACCOUNT BILL Color UA Yellow Yellow [facility] ACCOUNT BILL Appearance Clear Clear [facility] ACCOUNT BILL Leukocyte UA Negative Negative [facility] ACCOUNT BILL Protein UA Negative Negative/Tra ce [facility] ACCOUNT BILL Glucose UA Negative Negative [facility] ACCOUNT BILL Glucose Reflex NOT NEEDED [facility] ACCOUNT BILL Comment:Ancillary determined the test is not needed Ketone UA Negative Negative [facility] ACCOUNT BILL Occult Blood Urine Negative Negative [facility] ACCOUNT BILL Bilirubin UA Negative Negative [facility] ACCOUNT BILL Urobilinogen 0.2 0.0 - 1.9 mg/dL [facility] ACCOUNT BILL Nitrite UA Negative Negative [facility] ACCOUNT BILL Microscopic Examination Urine [facility] ACCOUNT BILL Comment:Microscopic follows if indicated. Urine specimen (specimen) URINE SPECIMEN OBTAINED BY CLEAN CATCH PROCEDURE / Unknown 03/27/2013 4:55 PM CDT 03/27/2013 6:16 PM CDT Narrative Resulting Agency Comment [facility] [address] [id number] Ronal Elizondo MD LAB - URINALYSIS ORD ERABLES [facility] ACCOUNT BILL * CULTURE ROUTINE (05/25/2011 10:50 AM CDT) Aerobic Bacterial Culture Final report [facility] ACCOUNT BILL Result 1 [facility] ACCOUNT BILL Comment: Coagulase negative Staphylococcus species. Recovered from broth only. Susceptibility or resistance of staphylococci to oxacillin predicts susceptibility or resistance to (a) other pret-lrvlnbbft-mwhjhp penicillins such as cloxacillin and dicloxacillin, (b) combinations of a penicillin and a beta-lactamase inhibitor, and (c) anti-staphylococcal cephalosporins. Routine testing of other penicillins, beta-lactam/beta-lactamase inhibitor combinations, cephems, and carbapenems is not advised by the CLSI Standards (B040-Q60, 2005). Antimicrobial Susceptibility [facility] ACCOUNT BILL Comment: S = Susceptible; I = Intermediate; R = Resistant P = Positive; N = Negative MICS are expressed in micrograms per mL Antibiotic RSLT#1 RSLT#2 RSLT#3 RSLT#4 Ciprofloxacin S Clindamycin S Erythromycin S Gentamicin S Levofloxacin S Linezolid S Oxacillin S Penicillin R Quinupristin/Dalfopristin S Rifampin S Tetracycline S Trimethoprim/Sulfa S Vancomycin S TISSUE SPECIMEN FROM SKIN / Unknown 05/25/2011 10:50 AM CDT 05/25/2011 1:13 PM CDT Narrative Resulting Agency Comment [facility] [address] [place] [phone] Ronal Elizondo MD LAB - MICROBIOLOGY O RDERABLES Performing Organization Address City/[facility]/ZIP Co de Phone Number [facility] ACCOUNT BILL * CULTURE STREP GROUP A (06/27/2009) ENTIRE THROAT (SURFACE REGION OF NECK) / Unknown Ronal Elizondo MD LAB - MICROBIOLOGY O RDERABLES Performing Organization Address [facility] Co de Phone Number [facility] ACCOUNT BILL * GROSS + MICRO EXAM (04/02/2009 12:00 AM CDT) [facility] Surgeon DR. CHRISTIAN HERNANDEZ [facility] Grossed By ERNESTO CLINE [facility] Gross Report [facility] Comment: COPY TO INDICATION FOR PROCEDURE CYST, PERIURETHRAL OPERATION EXCISION OF PERIURETHRAL CYST GROSS THE SPECIMEN IS RECEIVED IN ONE CONTAINER LABELED WITH THE PATIENT'S NAME AND PREURETHRAL CYST. THE SPECIMEN IS RECEIVED IN FORMALIN AND CONSISTS OF A 0.8 X 0.6 X 0.5 CM RAISED, WRINKLED PIECE OF HENRIQUEZ TISSUE. THE BASE IS INKED. IT IS BISECTED AND ALL SUBMITTED IN A SINGLE CASSETTE. LW/KM Microscopic Examination [facility] Comment: MICROSCOPIC SECTION LABELED PERIURETHRAL CYST SHOWS A FRAGMENT OF TISSUE SURFACED BY SQUAMOUS EPITHELIUM DISPLAYING NORMAL MATURATION. WITHIN THE DERMIS, AN EPIDERMAL INCLUSION CYST IS SEEN. THE CYST WALL IS COMPOSED OF SQUAMOUS EPITHELIUM. THE CYST IS FOCALLY SURROUNDED BY CHRONIC INFLAMMATORY CELLS WITH MULTINUCLEATED GIANT CELLS. NO MALIGNANCY IS SEEN. JW/DC Diagnosis [facility] Comment: DIAGNOSIS 1. PERIURETERAL CYST -- EPIDERMAL INCLUSION CYST WITH CHRONIC INFLAMMATION AND FOREIGN BODY REACTION JW/DC Released by Carla CABRERA [facility] CPT Code 57460 [facility] CYST TISSUE / Unknown 04/02/2009 Christian Hernandez MD LAB - PATHOLOGY/CYTO LOGY ORDERABLES Performing Organization Address City/[facility]/ZIP Co de Phone Number [facility] [address] [place] [address] * ENDOSCOPY, COLON, SCREENING (02/03/2009) Ronal Elizondo MD GI PROCEDURE ORDERAB LES
--- OUTSIDE RECORDS SUMMARY | 2024-10-08 15:50 | XMS_ITS | Clinical Summary ---
Author Organization [facility] Address [address] [place] [address] Care Team Providers Care Nurse Plastics Name Role Phone No, Physician Primary Care Provider [phone] Allergies No known active allergies Medications ALPRAZolam [...] 05/06/2021 07/06/2021 Tobacco use disorder 07/13/2008 021 Surgical History Surgery Date Site/Laterality Comments COLONOSCOPY 09/03/2016 - 09/02/2017 [facility] Family History Medical History Relation Name Comments Colon cancer Sister Relation Name Status Comments Sister (Age 16) Social History Tobacco Use Types Packs/Day Years [...] AM CDT Sexual Orientation Not on file Obstetrics History Last Filed Vital Signs Vital Sign Reading [...] Plan of Treatment Not on file Insurance [facility] Advance Directives For more information, please contact: [phone] * Full Code (Latest Code Status on File) Date Activated Date Inactivated Comments 06/10/2021 11:26 AM 06/10/2021 5:25 PM * Full Code Date Activated Date Inactivated Comments 06/10/2021 11:26 AM 06/10/2021 11:26 AM Care Teams Nurse Plastics Relationship Specialty Start Date End Date No, Physician PCP - General 04/29/21
--- OUTSIDE RECORDS SUMMARY | 2024-10-08 15:50 | XMS_ITS | Clinical Summary ---
Author Organization [facility] Address [address] [place] [address] Care Team Providers Care Product Management Consultant Name Role Phone Unavailable Primary Care Provider Unavailabl e Source Comments [facility],non-owned Affiliates and Associated Physician Practices is amultiple site organization consisting of ambulatory clinics and hospital sitesin [place], [place], [place] and [place]. This disclosure is being madepursuant to the Care Everywhere program and may not contain all information available regarding this patient. Last updated 18.[facility] Allergies No known active allergies Medications * [...] 11/28/2012 TD VACCINE 09/03/2002 TDAP (7yrs+) 05/25/2011 Family History Medical History Relation Name Comments CAD (Coronary Artery Disease) Father Cancer - Colon Maternal Grandmother Cancer Mother renal Migraine Mother Sleep Apnea Mother Cancer Sister Cancer - Colon Sister Relation Name Status Comments Father Maternal Grandmother Mother Sister Social History Tobacco Use Types Packs/Day Years [...] Comments Blood Pressure 153/101 10/09/2023 11:34 AM PIPING DESIGN SPECIALIST Pulse 92 10/09/2023 11:34 AM PIPING DESIGN SPECIALIST Temperature 36.6 C (97.9 F) 10/09/2023 11:34 AM PIPING DESIGN SPECIALIST Respiratory Rate 16 12/05/2016 8:57 AM CDT Oxygen Saturation 98% 10/09/2023 11:34 AM PIPING DESIGN SPECIALIST Inhaled Oxygen Concentration - - Weight 97.5 kg (215 lb) 10/09/2023 11:34 AM PIPING DESIGN SPECIALIST Height 167.6 cm (5' 6 ) 10/09/2023 11:34 AM PIPING DESIGN SPECIALIST Body Mass Index 34.7 10/09/2023 11:34 AM PIPING DESIGN SPECIALIST Plan of Treatment Health Maintenance Due Date Last Done Comments HIV SCREENING 1998 HEPATITIS C SCREENING 07/12/2001 HEPATITIS B VACCINE (1 of 3 - 19+ 3-dose series) 2002 PNEUMOCOCCAL VACCINE (2 of 2 - PCV) 11/28/2013 11/28/2012 LIPID TESTING 02/14/2021 02/15/2016, 01/2015, 05/25/2011 DTAP/TDAP/TD VACCINES (3 - Td or Tdap) 05/25/2021 05/25/2011, 09/03/2002 SCREENING FOR DIABETES 10/09/2023 6, 02/05/2015, 03/27/2013, Additional history exists COVID-19 VACCINE (1 - season) 2024 INFLUENZA VACCINE (#1) 2024 5, 08/14/2014, 05/16/2013, Additional history exists DEPRESSION SCREENING 09/03/2024 ZOSTER VACCINE (1 of 2) 2033 HIB VACCINE Aged Out No longer eligi ble based on patient's age to complete this topic HPV VACCINE Aged Out No longer eligi ble based on patient's age to complete this topic MENINGOCOCCAL (Group B) VACCINE Aged Out No longer eligible based on patient's age to complete this topic MENINGOCOCCAL VACCINE Aged Out No ele florinda eligible based on patient's age to complete this topic Goals Goal Patient Goal Type Associated Problems [...] 12:59 PM CDT Narrative Resulting Agency Comment [facility] [address] [place] [address] [phone] Ronal Elizondo MD LAB - CHEMISTRY HAROON ZHOU Performing Organization Address City/[facility]/ZIP Co de Phone Number [facility] ACCOUNT BILL [address] [place] [address] * (ABNORMAL) LIPID PROFILE (02/15/2016 11:07 AM [...] 12:59 PM CDT Narrative Resulting Agency Comment [facility] [address] [place] [address] [phone] Ronal Elizondo MD LAB - CHEMISTRY HAROON ZHOU [facility] ACCOUNT BILL [address] [place] [address] from Last 3 Months or Most Recently Relevant to Health Maintenance Advance Directives * Full Code (Latest Code Status on File) Date Activated Date Inactivated Comments 05/25/2011 10:27 AM Unplug if lilyl PADILLA is Kenyetta Decker. Would do organ donation.
[2024-10-08 15:55] VITALS: O2SAT 95
--- NOTE | 2024-10-08 16:06 | ED_ITS ---
HPI - URI/Sore Throat General Chief Complaint: Upper Respiratory Infection Stated Complaint: fever, congestion, sore throat Time Seen by Provider: 10/08/24 15:38 Source: patient Mode of arrival: ambulatory Limitations: no limitations History of Present Illness HPI Narrative: 39-year-old male with no significant past medical history presents to the ED with -- fever. Current temperature of 38.9? centigrade. -- Sore throat -- chest congestion -- cough which is nonproductive -- body ache/ muscle aches MD elicited complaint: fever and cough Onset (ago): day(s) ( 1 day) Consistency: constant Severity: moderate Description of mucous: clear Able to tolerate fluids by mouth: Yes Exacerbating factors: nothing Relieving factors: nothing Associated symptoms: fever, chills, myalgias and headache Treatments prior to arrival: none Related Data Home Medications ?Medication ?Instructions ?Recorded ?Confirmed ?Last Taken ?Type No Home Medications 10/08/24 10/08/24 Unknown History Allergies Allergy/AdvReac Type Severity Reaction Status Date / Time No Known Allergies Allergy Unverified 10/08/24 16:08 Review of Systems Review of Systems: All systems reviewed & are unremarkable except as noted in HPI and below PMFSH Past Medical History Medical History No pertinent past medical history Surgical History Surgical History No history of previous surgery Exam Narrative: temperature- 102 pulse rate of 136 oxygen saturation of 95% on room air. Const: General: ill appearing Orientation/consciousness: patient oriented x3 Limitations: no limitations HENMT: Head: normal to inspection Ears: external ears normal Face/Nose/Sinus: Normal external nose present Face and sinus: normal facial exam Mouth: Yes Normal oral and palatal mucosa present Throat: posterior oropharynx normal ( Pharyngeal erythema) Eyes: Conjunctivae: conjunctivae normal Pupils: Equal, round and reactive pupils present EOM: EOMs intact bilaterally Direct Ophthalmoscopy: no photophobia Neck: Neck: normal visual inspection, no lymphadenopathy and no meningeal signs Chest: Chest palpation & inspection: normal inspection of the chest Resp: Effort & Inspection: normal respiratory effort Auscultation: clear to auscultation bilaterally Cardio: Rate: tachycardic Rhythm: regular rhythm GI: GI Palp: Yes Soft to palpation Auscultation: normal bowel sounds Other: no tenderness/ rigidity / rebound. : General: Yes no CVA tenderness Back/Spine/Pelvis: Back: no CVA tenderness Skin: General skin exam: normal color Rashes: no rashes Wounds: no wounds Neuro: General: patient oriented x3, moves all extremities, no meningeal signs, no focal motor deficits and CN's II-XI intact bilaterally Cranial nerves: Yes Nystagmus not present Speech: normal speech Gait exam (Neuro): Normal gait present Extrem: General: normal to inspection and no clubbing, cyanosis or edema Psych: Mental Status: mental status grossly normal Affect: normal affect Attitude: cooperative Course Course Emergency Course: Upper respiratory tract infection-- secondary to influenza A Vital Signs Vital signs: Vital Signs Temperature 38.9 C H 10/08/24 15:19 Pulse Rate 136 H 10/08/24 15:19 Respiratory Rate 18 10/08/24 15:19 Blood Pressure 150/115 H 10/08/24 15:19 Pulse Oximetry 95 10/08/24 15:19 Oxygen Delivery Room Air 10/08/24 15:19 Temperature 38.9 C H 10/08/24 15:19 Pulse Rate 136 H 10/08/24 15:19 Respiratory Rate 18 10/08/24 15:19 Blood Pressure 150/115 H 10/08/24 15:19 Pulse Oximetry 95 10/08/24 15:55 Oxygen Delivery Room Air 10/08/24 15:55 MDM - URI/Sore Throat MDM Narrative Medical decision making narrative: influenza a Differential Diagnosis Differential diagnosis: Likely sinusitis and viral infection Lab Data Attestation: I reviewed the patient's lab results. Labs: Lab Results 10/08/24 Range/Units 15:38 Influenza A (RT-PCR) Positive A (Negative) Influenza B (RT-PCR) Negative (Negative) RSV (RT-PCR) Negative (Negative) SARS-CoV-2 RNA (RT-PCR) Negative (Negative) Discharge Plan Discharge Clinical Impression: Influenza Patient Disposition: Home, Self-Care Condition: Stable Instructions: Antibiotic Form, Influenza (ED) Patient Language: Kyrgyz Prescriptions: No Action No Home Medications Follow-up/Referrals: UNKNOWN,DOCTOR [Primary Care Provider] - Time of Disposition: 16:23
--- OUTSIDE RECORDS SUMMARY | 2024-10-08 16:12 | XMS_ITS | Clinical Summary ---
Author Organization [facility] Address [address] [place] [address] Care Team Providers Care Scoop Driver Name Role Phone Unavailable Primary Care Provider Unavailabl e Source Comments [facility],non-owned Affiliates and Associated Physician Practices is amultiple site organization consisting of ambulatory clinics and hospital sitesin [place], [place], [place] and [place]. This disclosure is being madepursuant to the Care Everywhere program and may not contain all information available regarding this patient. Last updated 18.[facility] Allergies No known active allergies Medications * [...] Comments Blood Pressure 153/101 10/09/2023 11:34 AM AUDIO VISUAL SECRETARY Pulse 92 10/09/2023 11:34 AM AUDIO VISUAL SECRETARY Temperature 36.6 C (97.9 F) 10/09/2023 11:34 AM AUDIO VISUAL SECRETARY Respiratory Rate 16 12/05/2016 8:57 AM CDT Oxygen Saturation 98% 10/09/2023 11:34 AM AUDIO VISUAL SECRETARY Inhaled Oxygen Concentration - - Weight 97.5 kg (215 lb) 10/09/2023 11:34 AM AUDIO VISUAL SECRETARY Height 167.6 cm (5' 6 ) 10/09/2023 11:34 AM AUDIO VISUAL SECRETARY Body Mass Index 34.7 10/09/2023 11:34 AM AUDIO VISUAL SECRETARY Plan of Treatment Health Maintenance Due Date [...] 12:59 PM CDT Narrative Resulting Agency Comment [facility] [address] [place] [address] [phone] Ronal Elizondo MD LAB - CHEMISTRY HAROON ZHOU Performing Organization Address City/[facility]/ZIP Co de Phone Number [facility] ACCOUNT BILL [address] [place] [address] * (ABNORMAL) LIPID PROFILE (02/15/2016 11:07 AM [...] 12:59 PM CDT Narrative Resulting Agency Comment [facility] [address] [place] [address] [phone] Ronal Elizondo MD LAB - CHEMISTRY HAROON ZHOU [facility] ACCOUNT BILL [address] [place] [address] from Last 3 Months or Most Recently Relevant to Health Maintenance Advance Directives * Full Code (Latest Code Status on File) Date Activated Date Inactivated Comments 05/25/2011 10:27 AM Unplug if lilly PADILLA is Kenyetta Decker. Would do organ donation.
--- OUTSIDE RECORDS SUMMARY | 2024-10-08 16:12 | XMS_ITS | Referral Summary ---
Author Organization [facility] Address [address] [place] [address] Care Team Providers Care Mineral Ore Processing Labourer Name Role Phone Unavailable Primary Care Provider Unavailabl e Source Comments [facility],non-owned Affiliates and Associated Physician Practices is amultiple site organization consisting of ambulatory clinics and hospital sitesin [place], [place], [place] and [place]. This disclosure is being madepursuant to the Care Everywhere program and may not contain all information available regarding this patient. Last updated 18.[facility] Allergies No known active allergies Medications * [...] Comments Blood Pressure 153/101 10/09/2023 11:34 AM DIALYSIS CHIEF EQUIPMENT TECHNICIAN Pulse 92 10/09/2023 11:34 AM DIALYSIS CHIEF EQUIPMENT TECHNICIAN Temperature 36.6 C (97.9 F) 10/09/2023 11:34 AM DIALYSIS CHIEF EQUIPMENT TECHNICIAN Respiratory Rate 16 12/05/2016 8:57 AM CDT Oxygen Saturation 98% 10/09/2023 11:34 AM DIALYSIS CHIEF EQUIPMENT TECHNICIAN Inhaled Oxygen Concentration - - Weight 97.5 kg (215 lb) 10/09/2023 11:34 AM DIALYSIS CHIEF EQUIPMENT TECHNICIAN Height 167.6 cm (5' 6 ) 10/09/2023 11:34 AM DIALYSIS CHIEF EQUIPMENT TECHNICIAN Body Mass Index 34.7 10/09/2023 11:34 AM DIALYSIS CHIEF EQUIPMENT TECHNICIAN Functional Status Functional Status Response Date of [...] 12:59 PM CDT Narrative Resulting Agency Comment [facility] [address] [phone] Ronal Elizondo MD LAB - CHEMISTRY HAROON ZHOU [facility] ACCOUNT BILL [address] [place] [address] * (ABNORMAL) LIPID PROFILE (02/15/2016 11:07 AM [...] 12:59 PM CDT Narrative Resulting Agency Comment [facility] [address] [phone] Ronal Elizondo MD LAB - CHEMISTRY HAROON ZHOU [facility] ACCOUNT BILL [address] [place] [address] from Last 3 Months or Most Recently Relevant to Health Maintenance Advance Directives * Full Code (Latest Code Status on File) Date Activated Date Inactivated Comments 05/25/2011 10:27 AM Unplug if lilly PADILLA is Kenyetta Decker. Would do organ donation.
--- OUTSIDE RECORDS SUMMARY | 2024-10-08 16:12 | XMS_ITS | Patient Health Summary ---
Author Organization [facility] Address [address] [address] Care Team Providers Care Farm Product Purchaser Name Role Phone Unavailable Primary Care Provider Unavailabl e Note from [facility],non-owned Affiliates and Associated Physician Practices is amultiple site organization consisting of ambulatory clinics and hospital sitesin [place], [place], [place] and [place]. This disclosure is being madepursuant to the Care Everywhere program and may not contain all information available regarding this patient. Last updated 18.[facility] Allergies No known active allergies Medications * [...] Comments Blood Pressure 153/101 10/09/2023 11:34 AM VOLLEYBALL ASSISTANT COACH Pulse 92 10/09/2023 11:34 AM VOLLEYBALL ASSISTANT COACH Temperature 36.6 C (97.9 F) 10/09/2023 11:34 AM VOLLEYBALL ASSISTANT COACH Respiratory Rate 16 12/05/2016 8:57 AM CDT Oxygen Saturation 98% 10/09/2023 11:34 AM VOLLEYBALL ASSISTANT COACH Inhaled Oxygen Concentration - - Weight 97.5 kg (215 lb) 10/09/2023 11:34 AM VOLLEYBALL ASSISTANT COACH Height 167.6 cm (5' 6 ) 10/09/2023 11:34 AM VOLLEYBALL ASSISTANT COACH Body Mass Index 34.7 10/09/2023 11:34 AM VOLLEYBALL ASSISTANT COACH Procedures * CARDIAC RHYTHM STRIP ORDER(Performed 12/06/2016) [...] AMB REFERRAL TO NEUROSURGERY (11/08/2016 4:02 PM VOLLEYBALL ASSISTANT COACH) Ronal Elizondo MD OUTPATIENT REFERRALS * [facility] (10/10/2016 9:04 PM VOLLEYBALL ASSISTANT COACH) Ronal Elizondo MD NEUROLOGY ORDERABLES * (ABNORMAL) [...] 12:59 PM CDT Narrative Resulting Agency Comment [facility] [address] [place] [address] [phone] Ronal Elizondo MD LAB - HEMATOLOGY ARRON ESPINO [facility] ACCOUNT BILL [address] [place] [address] * COMPREHENSIVE METABOLIC PANEL (02/15/2016 11:07 AM [...] 12:59 PM CDT Narrative Resulting Agency Comment [facility] [address] [place] [address] [phone] Ronal Elizondo MD LAB - CHEMISTRY HAROON ZHOU [facility] ACCOUNT BILL [address] [place] [address] * (ABNORMAL) LIPID PROFILE (02/15/2016 11:07 AM [...] 12:59 PM CDT Narrative Resulting Agency Comment [facility] [address] [phone] Ronal Elizondo MD LAB - CHEMISTRY HAROON ZHOU [facility] ACCOUNT BILL [address] [place] [address] * MRI UPPER EXT ANY JOINT NON [...] MD (Doctor), Alejandrina Yanez RN, Kami Dewitt, Psychometrician Referring MD: Ronal Elizondo MD (Referring MD) [...] screening purposes. Procedure Code(s): --- Professional --- 27028, Colonoscopy, flexible, proximal to splenic flexure; diagnostic, with or without collection of specimen(s) by brushing or washing, with or without colon decompression (separate procedure) --- Technical --- 23904, Colonoscopy, flexible, proximal to splenic flexure; diagnostic, with or without collection of specimen(s) by brushing or washing, with or without colon decompression (separate procedure) Diagnosis Code(s): --- Professional --- V16.0, Family history of malignant neoplasm of gastrointestinal tract --- Technical --- V16.0, Family history of malignant neoplasm of gastrointestinal tract CPT copyright 2013 [employer]. All rights reserved. The codes documented in this report are preliminary and upon branch library clerk review may be revised to meet current compliance requirements. Kike Canales MD 06/12/2014 9:50 AM This report has been signed electronically. Number of Addenda: 0 Note Initiated On: 06/12/2014 9:29 AM [facility] 06/12/2014 9:29 AM CDT Kike Canales MD GI PROCEDURE ORDERAB LES [facility] * TSH HI LOW REFLEX FREE T4 (PO REF LAB) (03/27/2013 4:55 PM CDT) TSH 2.580 0.450 - 4.500 uIU/mL [facility] ACCOUNT BILL BLOOD SPECIMEN / Unknown 03/27/2013 4:55 PM CDT 03/27/2013 6:16 PM CDT Narrative Resulting Agency Comment [facility] [address] [phone] Ronal Elizondo MD LAB - CHEMISTRY HAROON ZHOU [facility] ACCOUNT BILL * URINALYSIS DIPSTICK AUTO (03/27/2013 4:55 PM CDT) Only the most recent of2 resultswithin the time period is included. Specific [place] UA 1.029 1.005 - 1.030 [facility] ACCOUNT [...] PM CDT Narrative Resulting Agency Comment [facility] [address] [phone] Ronal Elizodno MD LAB - URINALYSIS ORD ERABLES [facility] ACCOUNT BILL * CULTURE ROUTINE (05/25/2011 10:50 AM CDT) Aerobic Bacterial Culture Final report [facility] ACCOUNT BILL Result 1 [facility] ACCOUNT BILL Comment: Coagulase negative Staphylococcus species. Recovered from broth only. Susceptibility or resistance of staphylococci to oxacillin predicts susceptibility or resistance to (a) other zbvm-hjocosaul-kaarfw penicillins such as cloxacillin and dicloxacillin, (b) combinations of a penicillin and a beta-lactamase inhibitor, and (c) anti-staphylococcal cephalosporins. Routine testing of other penicillins, beta-lactam/beta-lactamase inhibitor combinations, cephems, and carbapenems is not advised by the CLSI Standards (V150-Z33, 2005). Antimicrobial Susceptibility [facility] ACCOUNT BILL Comment: [...] PM CDT Narrative Resulting Agency Comment [facility] [address] [place] [phone] Ronal Elizondo MD LAB - MICROBIOLOGY O RDERABLES Performing Organization Address City/[facility]/ZIP Co de Phone Number [facility] ACCOUNT BILL * CULTURE STREP GROUP A (06/27/2009) ENTIRE THROAT (SURFACE REGION OF NECK) / Unknown Ronal Elizondo MD LAB - MICROBIOLOGY O RDERABLES Performing Organization Address [facility] Co de Phone Number [facility] ACCOUNT BILL * GROSS + MICRO EXAM (04/02/2009 12:00 AM CDT) [facility] Surgeon DR. CHRISTIAN HERNANDEZ [facility] Grossed By ERNESTO CLINE [facility] Gross Report [facility] Comment: COPY TO INDICATION FOR PROCEDURE [...] IN A SINGLE CASSETTE. LW/KM Microscopic Examination [facility] Comment: MICROSCOPIC SECTION LABELED PERIURETHRAL CYST SHOWS A FRAGMENT OF TISSUE SURFACED BY SQUAMOUS EPITHELIUM DISPLAYING NORMAL MATURATION. WITHIN THE DERMIS, AN EPIDERMAL INCLUSION CYST IS SEEN. THE CYST WALL IS COMPOSED OF SQUAMOUS EPITHELIUM. THE CYST IS FOCALLY SURROUNDED BY CHRONIC INFLAMMATORY CELLS WITH MULTINUCLEATED GIANT CELLS. NO MALIGNANCY IS SEEN. JW/DC Diagnosis [facility] Comment: DIAGNOSIS 1. PERIURETERAL CYST -- EPIDERMAL INCLUSION CYST WITH CHRONIC INFLAMMATION AND FOREIGN BODY REACTION JW/DC Released by Carla CABRERA [facility] CPT Code 88655 [facility] CYST TISSUE / Unknown 04/02/2009 Christian Hernandez MD LAB - PATHOLOGY/CYTO LOGY ORDERABLES Performing Organization Address City/[facility]/ZIP Co de Phone Number [facility] [address] [place] [address] * ENDOSCOPY, COLON, SCREENING (02/03/2009) Ronal Elizondo MD GI PROCEDURE ORDERAB LES
--- OUTSIDE RECORDS SUMMARY | 2024-10-08 16:12 | XMS_ITS | Referral Summary ---
Author Organization [facility] Address [address] [place] [address] Care Team Providers Care Cargo And Ramp Services Manager Name Role Phone No, Physician Primary Care Provider [phone] Allergies No known active allergies Medications ALPRAZolam [...] Plan of Treatment Not on file Insurance [facility] Advance Directives For more information, please contact: [phone] * Full Code (Latest Code Status on File) Date Activated Date Inactivated Comments 06/10/2021 11:26 AM 06/10/2021 5:25 PM * Full Code Date Activated Date Inactivated Comments 06/10/2021 11:26 AM 06/10/2021 11:26 AM Care Teams Cargo And Ramp Services Manager Relationship Specialty Start Date End Date No, Physician PCP - General 04/29/21
--- OUTSIDE RECORDS SUMMARY | 2024-10-08 16:12 | XMS_ITS | Encounter Summary ---
Author Organization [facility] Address [address] [place] [address] Care Team Providers Care Reed Repairer Name Role Phone Nopcp, Patient Primary Care Provider Unavailterri e Ronal Elizondo MD Primary Care Provider [phone] Ronal Elizondo MD Unavailable [phone] Encounter Details Date Type Department Care Team (Late st Contact Info) Description 02/08/2009 [facility] Outpatient Visit [facility] Default [address] [place] [id number] Unknown, Provider Social History Tobacco Use [...] on filedocumented in this encounter Care Teams Reed Repairer Relationship Specialty Start Date End Date Nopcp, Patient PCP - General 04/01/09 04/01/09 Ronal Elizondo MD [address] [place] [address] PCP - General 09/21/08 03/31/09 Ronal Elizondo MD [address] [place] [address] PCP - Attributed-Exclusive Choice 02/16/17 06/10/18 documented as of this encounter
--- OUTSIDE RECORDS SUMMARY | 2024-10-08 16:12 | XMS_ITS | Clinical Summary ---
Author Organization [facility] Address [address] [place] [address] Care Team Providers Care Stock Clerk Name Role Phone No, Physician Primary Care Provider [phone] Allergies No known active allergies Medications ALPRAZolam [...] Plan of Treatment Not on file Insurance [facility] Advance Directives For more information, please contact: [phone] * Full Code (Latest Code Status on File) Date Activated Date Inactivated Comments 06/10/2021 11:26 AM 06/10/2021 5:25 PM * Full Code Date Activated Date Inactivated Comments 06/10/2021 11:26 AM 06/10/2021 11:26 AM Care Teams Stock Clerk Relationship Specialty Start Date End Date No, Physician PCP - General 04/29/21
[2024-10-08 16:13] LABS: Influenza A QL RT-PCR Positive (Negative); Influenza B QL RT-PCR Negative (Negative); RSV RNA, RT-PCR Negative (Negative); SARS-CoV-2 RNA PCR Negative (Negative)
[2024-10-08] MEDS: KETOROLAC 30 MG/ML VIAL (*BKC) IM (16:25)
[2024-10-08 16:41] VITALS: BP 142/95; PULSE 133; RESP 18; TEMP 37.6; O2SAT 98
--- NOTE | 2024-10-08 16:43 | PC.NURSE ---
Dr Velazquez aware of discharge vitals
--- NOTE | 2024-10-08 16:44 | PC.NURSE ---
On 10/08/24, the student, [puneet dasilva ], provided care and completed [facility] documentation on this patient. I have reviewed the student's documentation and agree with the findings.
== END 2024-10-08 16:46 | disposition home or self-care (01) ==
PROVIDERS: Emergency Provider Internal Medicine Critical Care Medicine
DX: J10.1 Influenza due to other identified influenza virus with other respiratory manifestations (principal); Z20.822 Contact with and (suspected) exposure to COVID-19
CPT/HCPCS: 87637; 96372; 99283; J1885

== ENCOUNTER 2025-01-29 22:40 | Emergency (ER) | payer OTHER, SELFPAY ==
[2025-01-29 22:40] VITALS: BP 155/98; PULSE 94; RESP 18; TEMP 36; O2SAT 98
--- OUTSIDE RECORDS SUMMARY | 2025-01-29 22:49 | XMS_ITS | Clinical Summary ---
Author Organization [employer] Address [address] [place] [address] Care Team Providers Care Grocery Shopper Name Role Phone Unavailable Primary Care Provider Unavailabl e Source Comments [facility],non-owned Affiliates and Associated Physician Practices is amultiple site organization consisting of ambulatory clinics and hospital sitesin [place], [place], [place] and [place]. This disclosure is being madepursuant to the Care Everywhere program and may not contain all information available regarding this patient. Last updated 18.[facility] Allergies No known active allergies Medications * Be aware that medications may not be up to date on this document. Alwaysverify current medications with the patient. ALPRAZolam (XANAX) 0.25 MG tablet Take 1 Tab by mouth 2 times daily as needed For anxiety. 30 Tab 7 Active Additional Information Patient not taking.Reported on 10/09/2023 SUMAtriptan (IMITREX) 100 MG tabletIndicatio ns:Migraine Take 1 Tab by mouth once as needed for Migraine May repeat in 2 hours. Maximum 2 pills in 24 hours Reasons: Migraine Headache 9 Tab 5 7 Active Additional Information Patient not taking.Reported on 10/09/2023 venlafaxine XR 24hr (EFFEXOR XR) 75 MG capsule Take 1 Cap by mouth daily with breakfast 90 Cap 1 7 Active Additional Information Patient not taking.Reported on 10/09/2023 venlafaxine XR 24hr (EFFEXOR XR) 150 MG capsule Take 1 Cap by mouth daily with breakfast 90 Cap 1 7 Active Additional Information Patient not taking.Reported on [...] 07/13/200806/2015 Overview (07/13/2008): 8th grade education Immunizations Immunization Administration Dates Next Due INFLUENZA VACCINE, TRIV. 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 Gender Identity Not on file Sexual Orientation Not on file Occupation Industry Job Start Date Job End Date billing auditor - former Not on file Not on file Not on file makes gourmet fudge and popcorn Not on file Not on fi le Not on file Last Filed Vital Signs Vital Sign Reading Time Taken Comments Blood Pressure 153/101 10/09/2023 11:34 AM TECHNOLOGY PROGRAM MANAGER Pulse 92 10/09/2023 11:34 AM TECHNOLOGY PROGRAM MANAGER Temperature 36.6 C (97.9 F) 10/09/2023 11:34 AM TECHNOLOGY PROGRAM MANAGER Respiratory Rate 16 12/05/2016 8:57 AM CDT Oxygen Saturation 98% 10/09/2023 11:34 AM TECHNOLOGY PROGRAM MANAGER Inhaled Oxygen Concentration - - Weight 97.5 kg (215 lb) 10/09/2023 11:34 AM TECHNOLOGY PROGRAM MANAGER Height 167.6 cm (5' 6) 10/09/2023 11:34 AM TECHNOLOGY PROGRAM MANAGER Body Mass Index 34.7 10/09/2023 11:34 AM TECHNOLOGY PROGRAM MANAGER Plan of Treatment Health Maintenance Due Date [...] 02/05/2015, 03/27/2013, Additional history exists COVID-19 VACCINE (2023- season) 2024 DEPRESSION SCREENING 09/03/2024 INFLUENZA VACCINE (Season Ended) 2025 06/11/2015, 08/14/2014, 05/16/2013, Additional history exists ZOSTER VACCINE (1 of 2) 2033 HIB VACCINE Aged Out No longer eligi ble based on patient's age to complete this topic HPV VACCINE Aged Out No longer eligi ble based on patient's age to complete this topic MENINGOCOCCAL (Group B) VACCINE SHARED DECISION-MAKING Aged Out No longer eligible based on patient's age to complete this topic MENINGOCOCCAL GROUPS A/C/Y/W VACCINE Aged Out No longer eligible based on patient's age to complete this topic Goals Goal Patient Goal Type Associated Problems Recent Progress Patient-Stated? Author Quit smoking / using tobacco Lifestyle Not on track(02/15/20 10:32 AM CDT) No Flaquita Decker MA [...] 12:59 PM CDT Narrative Resulting Agency Comment [facility] [address] [place] [address] [phone] Ronal Elizondo MD LAB - CHEMISTRY ORDERABLES Fi nal Result Performing Organization Address [facility] de Phone Number [facility] ACCOUNT BILL [address] [place] [address] * (ABNORMAL) LIPID PROFILE (02/15/2016 11:07 AM [...] 12:59 PM CDT Narrative Resulting Agency Comment [facility] [address] [place] [address] [phone] Ronal Elizondo MD LAB - CHEMISTRY ORDERABLES Fi nal Result Performing Organization Address [facility] de Phone Number [facility] ACCOUNT BILL [address] [place] [address] from Last 3 Months or Most Recently Relevant to Health Maintenance Insurance Advance Directives * Full Code (Latest Code Status on File) Date Activated Date Inactivated Comments 05/25/2011 10:27 AM Unplug if lilly PADILLA is Kenyetta Decker. Would do organ donation.
--- OUTSIDE RECORDS SUMMARY | 2025-01-29 22:49 | XMS_ITS | Encounter Summary ---
Author Organization [facility] Health Address [address] [place] [address] Care Team Providers Care Carpet Sewer Name Role Phone Nopcp, Patient Primary Care Provider Unavailterri e Ronal Elizondo MD Primary Care Provider [phone] Ronal Elizondo MD Unavailable [phone] Encounter Details Date Type Department Care Team (Late st Contact Info) Description 02/08/2009 [facility] Outpatient Visit HC Default [address] [place] [id number] Unknown, Provider Social History Tobacco Use Types Packs/Day Years Used Date Smoking Tobacco: Every Day Cigarettes 1 9 Alcohol Use Standard Drinks/Week Comments Yes 0 (1 standard drink = 0.6 oz pur e alcohol) Sex and Gender Information Value Date Recorded Sex Assigned at Not on file 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
--- OUTSIDE RECORDS SUMMARY | 2025-01-29 22:49 | XMS_ITS | Referral Summary ---
Author Organization [facility] Address [address] [place] [address] Care Team Providers Care Intelligence Research Specialist Name Role Phone No, Physician Primary Care Provider [phone] Allergies No known active allergies Medications ALPRAZolam [...] A M CDT Height 167.6 cm (5' 6) 07/06/2021 8:59 AM CDT Body Mass Index 33.77 07/06/2021 8:59 AM CDT Plan of Treatment Not on file Insurance [facility] Advance Directives For more information, please contact: [phone] * Full Code (Latest Code Status on File) Date Activated Date Inactivated Comments 06/10/2021 11:26 AM 06/10/2021 5:25 PM * Full Code Date Activated Date Inactivated Comments 06/10/2021 11:26 AM 06/10/2021 11:26 AM Care Teams Intelligence Research Specialist Relationship Specialty Start Date End Date No, Physician PCP - General 04/29/21
--- OUTSIDE RECORDS SUMMARY | 2025-01-29 22:49 | XMS_ITS | Clinical Summary ---
Author Organization [facility] Address [address] [place] [address] Care Team Providers Care Math And Physics Instructor Name Role Phone No, Physician Primary Care Provider [phone] Allergies No known active allergies Medications ALPRAZolam [...] Plan of Treatment Not on file Insurance [facility] Advance Directives For more information, please contact: [phone] * Full Code (Latest Code Status on File) Date Activated Date Inactivated Comments 06/10/2021 11:26 AM 06/10/2021 5:25 PM * Full Code Date Activated Date Inactivated Comments 06/10/2021 11:26 AM 06/10/2021 11:26 AM Care Teams Math And Physics Instructor Relationship Specialty Start Date End Date No, Physician PCP - General 04/29/21
--- NOTE | 2025-01-29 23:00 | ECG_ITS ---
Test Date: 2025-01-29 23:20:24 Measurements Intervals [place] Rate: 91 P: 50 [place]: 180 QRS: 16 QRSD: 116 T: 42 QT: 379 QTc: 467 Interpretive Statements SINUS RHYTHM MODERATE INTRAVENTRICULAR CONDUCTION DELAY [110+ ms QRS DURATION] No previous ECG available for comparison Electronically Signed On 01-30-2025 10:59:28 CDT by Asael North M.D.
--- NOTE | 2025-01-29 23:07 | ED_ITS ---
HPI - Psych General Chief Complaint: Animal Bite <Billy Busch MD - Last Filed: 01/30/25 06:23> Stated Complaint: animal bite <Billy Busch MD - Last Filed: 01/30/25 06:23> Time Seen by Provider: 01/29/25 22:58 <Billy Busch MD - Last Filed: 01/30/25 06:23> Source: patient and family <Billy Busch MD - Last Filed: 01/30/25 06:23> Mode of arrival: ambulatory <Billy Busch MD - Last Filed: 01/30/25 06:23> Limitations: no limitations <Billy Busch MD - Last Filed: 01/30/25 06:23> History of Present Illness HPI Narrative: this is a 39-year-old male with no significant past medical history presents after a dog bite to the left shoulder area more superficial non gaping contusions and abrasions. Patient presents with his who is called mental health because the patient has been feeling depressed and suicidal. The patient voiced that he is suicidal without any current plan. No other injuries noted patient feels depressed and is currently not on any medication. Patient has been drinking after he had the dog bite to the left shoulder area. < Billy Busch MD - Last Filed: 01/30/25 06:23> MD complaint: suicidal ideation and feels depressed <Billy Busch MD - Last Filed: 01/30/25 06:23> Onset (ago): day(s) <Billy Busch MD - Last Filed: 01/30/25 06:23> Duration: constant <Billy Busch MD - Last Filed: 01/30/25 06:23> History of same: Yes <Billy Busch MD - Last Filed: 01/30/25 06:23> Context: recent alcohol abuse <Billy Busch MD - Last Filed: 01/30/25 06:23> Associated psychiatric symptoms: depression and suicidal ideation <Billy Busch MD - Last Filed: 01/30/25 06:23> Associated symptoms: denies other symptoms <Billy Busch MD - Last Filed: 01/30/25 06:23> Related Data Allergies/Adverse Reactions: Allergies Allergy/AdvReac Type Severity Reaction Status Date / Time No Known Allergies Allergy Verified 01/29/25 23:33 <Billy Busch MD - Last Filed: 01/30/25 06:23> Review of Systems 2 Review of Systems: All systems reviewed & are unremarkable except as noted in HPI and below <Billy Busch MD - Last Filed: 01/30/25 06:23> PMFSH Past Medical History Medical History: Medical History No pertinent past medical history <Billy Busch MD - Last Filed: 01/30/25 06:23> Surgical History Surgical History: Surgical History No history of previous surgery <Billy Busch MD - Last Filed: 01/30/25 06:23> Social History Social History: Social History Substance use type: does not use <Billy Busch MD - Last Filed: 01/30/25 06:23> Exam 2 Const: General: healthy appearing and no acute distress <Billy Busch MD - Last Filed: 01/30/25 06:23> Nutritional Appearance: well nourished <Billy Busch MD - Last Filed: 01/30/25 06:23> Limitations: behavioral limitations <Billy Busch MD - Last Filed: 01/30/25 06:23> Neck: Neck: normal visual inspection <Billy Busch MD - Last Filed: 01/30/25 06:23> Chest: Chest palpation & inspection: normal inspection of the chest < Billy Busch MD - Last Filed: 01/30/25 06:23> Resp: Effort & Inspection: normal respiratory effort <Billy Busch MD - Last Filed: 01/30/25 06:23> Auscultation: clear to auscultation bilaterally <Billy Busch MD - Last Filed: 01/30/25 06:23> Cardio: Rate: regular rate <Billy Busch MD - Last Filed: 01/30/25 06:23> Rhythm: regular rhythm <MD Tanya Fernando Last Filed: 01/30/25 06:23> GI: GI Palp: Yes Soft to palpation <MD Tanya Fernando Last Filed: 01/30/25 06:23> Auscultation: normal bowel sounds <MD Tanya Fernando Last Filed: 01/30/25 06:23> : General: Yes bladder normal to palpation <MD Tanya Fernando Last Filed: 01/30/25 06:23> Urinary Catheter: Urinary Catheter: patent and draining <MD Tanya Fernando Last Filed: 01/30/25 06:23> Back/Spine/Pelvis: Back: no CVA tenderness <MD Tanya Fernando Last Filed: 01/30/25 06:23> Skin: Other: Left shoulder with some 2 distinct areas of abrasions with non gaping areas currently not bleeding. <MD Tanya Fernando Last Filed: 01/30/25 06:23> Neuro: General: moves all extremities <MD Tanya Fernando Last Filed: 01/30/25 06:23> Cranial nerves: Yes Nystagmus not present <MD Tanya Fernando Last Filed: 01/30/25 06:23> Speech: normal speech <MD Tanya Fernando Last Filed: 01/30/25 06:23> Extrem: General: no clubbing, cyanosis or edema <MD Tanya Fernando Last Filed: 01/30/25 06:23> Psych: Affect: Sad affect present <MD Tanya Fernando Last Filed: 01/30/25 06:23> Course Course Emergency Course: Patient voiced that he is suicidal with no distinct plan with depression. Patient has been drinking and obtained blood work an EKG for medical psychiatric clearance. Has abrasions to the left shoulder area and will update patient with his tetanus. labs reviewed with patient and alcohol levels to 270 will repeat alcohol level at around 8:00 a.m.. <MD Tanya Fernando Last Filed: 01/30/25 06:23> Vital Signs Vital signs: Vital Signs Temperature 36.0 C L 01/29/25 22:40 Pulse Rate 94 01/29/25 22:40 Respiratory Rate 18 01/29/25 22:40 Blood Pressure 155/98 H 01/29/25 22:40 Pulse Oximetry 98 01/29/25 22:40 Oxygen Delivery Room Air 01/29/25 22:40 Temperature 35.8 C L 01/30/25 09:27 Pulse Rate 101 H 01/30/25 09:27 Respiratory Rate 18 01/30/25 09:27 Blood Pressure 178/87 H 01/30/25 09:27 Pulse Oximetry 95 01/30/25 09:27 Oxygen Delivery Room Air 01/30/25 09:27 <Billy Busch MD - Last Filed: 01/30/25 06:23> Vital Signs Temperature 36.0 C L 01/29/25 22:40 Pulse Rate 94 01/29/25 22:40 Respiratory Rate 18 01/29/25 22:40 Blood Pressure 155/98 H 01/29/25 22:40 Pulse Oximetry 98 01/29/25 22:40 Oxygen Delivery Room Air 01/29/25 22:40 Temperature 35.8 C L 01/30/25 09:27 Pulse Rate 101 H 01/30/25 09:27 Respiratory Rate 18 01/30/25 09:27 Blood Pressure 178/87 H 01/30/25 09:27 Pulse Oximetry 95 01/30/25 09:27 Oxygen Delivery Room Air 01/30/25 09:27 <Adriano Santos MD - Last Filed: 01/30/25 12:26> MDM - Psych MDM Narrative Medical decision making narrative: I have taken over the case at shift change this morning while we await for his alcohol level to decrease. His alcohol level had decreased enough below 80 and we were able to call psychiatric counselors for evaluation. Also we re- examined his suicidal thoughts and at this time he had no further suicidal ideation or thoughts. He does say that he is an alcoholic and binge drinks once or twice a week. He is having depression. Psychiatric counselors came and evaluated the patient and felt that he is not inpatient criteria but he does meet living room site patient to start today. He will go to the living room today with the psychiatric counselors. He will get information and assistance with alcoholism. <Adriano Santos MD - Last Filed: 01/30/25 12:26> Lab Data Attestation: I reviewed the patient's lab results. <Adriano Santos MD - Last Filed: 01/30/25 12:26> Result diagrams: 01/29/25 23:40 01/29/25 23:40 <Billy Busch MD - Last Filed: 01/30/25 06:23> Labs: Lab Results 01/29/25 01/30/25 01/30/25 Range/Units 23:40 00:06 07:17 WBC 9.8 (4.8-10.8) K/mm3 RBC 4.91 (4.70-6.10) M/mm3 Hgb 15.1 (14.0-18.0) g/dL Hct 43.3 (40.0-54.0) % MCV 88.2 (78.0-102.0) fL MCH 30.8 (27.0-31.0) pg MCHC 34.9 (32-36) g/dL RDW 12.0 (11.6-14.4) % Plt Count 247 (150-420) K/mm3 MPV 10.0 (8.7-11.0) fl Immature Gran % (Auto) 0.5 H (0.0-0.0) % Neut % (Auto) 84.0 H (50.0-70.0) % Lymph % (Auto) 12.0 L (18.0-42.0) % [place] % (Auto) 3.1 (2.0-11.0) % Eos % (Auto) 0.3 L (1.0-6.0) % Baso % (Auto) 0.1 (0.0-1.0) % Lymph # (Auto) 1.18 (1.10-4.50) K/mm3 [place] # (Auto) 0.30 (0.10-0.90) K/mm3 Eos # (Auto) 0.03 (0.02-0.50) K/mm3 Baso # (Auto) 0.01 (0.00-0.10) K/mm3 Abs Immat Gran (auto) 0.05 H (0.00-0.00) K/mm3 Absolute Neuts (auto) 8.26 H (1.70-7.20) K/mm3 Absolute Nucleated RBC 0.00 (0.00-0.00) K/mm3 Nucleated RBC % 0.0 (0-0.0) % Sodium 142 (137-145) mmol/L Potassium 3.9 (3.4-5.0) mmol/L Chloride 106 (98-107) mmol/L Carbon Dioxide 26 (22-30) mmol/L Anion Gap 10 (4-12) mmol/L BUN 15 (9-20) mg/dL Creatinine 1.08 (0.7-1.3) mg/dL Estim Creat Clear Calc 87 ml/min Estimated GFR > 60 (59 - ) Glucose 121 H (65-110) mg/dL Calculated Osmolality 295 (285-295) mOsm/kg Calcium 8.6 (8.4-10.2) mg/dL Magnesium 2.2 (1.6-2.3) mg/dL Total Bilirubin 0.4 (0.2-1.3) mg/dL AST 31 (17-59) U/L ALT 39 (6-50) U/L Alkaline Phosphatase 80 (38-126) U/L Total Protein 8.0 (6.3-8.2) g/dL Albumin 4.6 (3.5-5.1) g/dL TSH (Reflex) 2.220 (0.465-4.68) uIU/mL Urine Color Light yellow (Yellow) Urine Appearance Clear (Clear) Urine pH 5.5 (5.0-8.0) Ur Specific [place] 1.025 H (1.010-1.020) Urine Protein Negative (Negative) Urine Glucose (UA) Negative (Negative) Urine Ketones Negative (Negative) Ur Blood (Man) Negative (Negative) Urine Nitrate Negative (Negative) Urine Bilirubin Negative (Negative) Urine Urobilinogen 0.2 (0.2-1.0) mg/dL Leukocyte Esterase Rfl Negative (Negative) AMARJIT/UL Urine Opiates Screen Negative (Negative) Urine Methadone Screen Negative (Negative) Acetaminophen < 10 L (10-30) ug/mL Ur Barbiturates Screen Negative (Negative) Ur Phencyclidine Scrn Negative (Negative) Ur Amphetamine Screen Negative (Negative) U Benzodiazepines Scrn Negative (Negative) Urine Cocaine Screen Negative (Negative) U Cannabinoids Screen Positive A (Negative) Ethyl Alcohol 270 98 (<10) mg/dL Influenza A (RT-PCR) Negative (Negative) Influenza B (RT-PCR) Negative (Negative) RSV (RT-PCR) Negative (Negative) SARS-CoV-2 RNA (RT-PCR) Negative (Negative) 01/30/25 Range/Units 09:33 WBC (4.8-10.8) K/mm3 RBC (4.70-6.10) M/mm3 Hgb (14.0-18.0) g/dL Hct (40.0-54.0) % MCV (78.0-102.0) fL MCH (27.0-31.0) pg MCHC (32-36) g/dL RDW (11.6-14.4) % Plt Count (150-420) K/mm3 MPV (8.7-11.0) fl Immature Gran % (Auto) (0.0-0.0) % Neut % (Auto) (50.0-70.0) % Lymph % (Auto) (18.0-42.0) % Lander % (Auto) (2.0-11.0) % Eos % (Auto) (1.0-6.0) % Baso % (Auto) (0.0-1.0) % Lymph # (Auto) (1.10-4.50) K/mm3 [place] # (Auto) (0.10-0.90) K/mm3 Eos # (Auto) (0.02-0.50) K/mm3 Baso # (Auto) (0.00-0.10) K/mm3 Abs Immat Gran (auto) (0.00-0.00) K/mm3 Absolute Neuts (auto) (1.70-7.20) K/mm3 Absolute Nucleated RBC (0.00-0.00) K/mm3 Nucleated RBC % (0-0.0) % Sodium (137-145) mmol/L Potassium (3.4-5.0) mmol/L Chloride (98-107) mmol/L Carbon Dioxide (22-30) mmol/L Anion Gap (4-12) mmol/L BUN (9-20) mg/dL Creatinine (0.7-1.3) mg/dL Estim Creat Clear Calc ml/min Estimated GFR (59 - ) Glucose (65-110) mg/dL Calculated Osmolality (285-295) mOsm/kg Calcium (8.4-10.2) mg/dL Magnesium (1.6-2.3) mg/dL Total Bilirubin (0.2-1.3) mg/dL AST (17-59) U/L ALT (6-50) U/L Alkaline Phosphatase (38-126) U/L Total Protein (6.3-8.2) g/dL Albumin (3.5-5.1) g/dL TSH (Reflex) (0.465-4.68) uIU/mL Urine Color (Yellow) Urine Appearance (Clear) Urine pH (5.0-8.0) Ur Specific [place] (1.010-1.020) Urine Protein (Negative) Urine Glucose (UA) (Negative) Urine Ketones (Negative) Ur Blood (Man) (Negative) Urine Nitrate (Negative) Urine Bilirubin (Negative) Urine Urobilinogen (0.2-1.0) mg/dL Leukocyte Esterase Rfl (Negative) AMARJIT/UL Urine Opiates Screen (Negative) Urine Methadone Screen (Negative) Acetaminophen (10-30) ug/mL Ur Barbiturates Screen (Negative) Ur Phencyclidine Scrn (Negative) Ur Amphetamine Screen (Negative) U Benzodiazepines Scrn (Negative) Urine Cocaine Screen (Negative) U Cannabinoids Screen (Negative) Ethyl Alcohol 56 (<10) mg/dL Influenza A (RT-PCR) (Negative) Influenza B (RT-PCR) (Negative) RSV (RT-PCR) (Negative) SARS-CoV-2 RNA (RT-PCR) (Negative) <Billy Busch MD - Last Filed: 01/30/25 06:23> Lab Results 01/29/25 01/30/25 01/30/25 Range/Units 23:40 00:06 07:17 WBC 9.8 (4.8-10.8) K/mm3 RBC 4.91 (4.70-6.10) M/mm3 Hgb 15.1 (14.0-18.0) g/dL Hct 43.3 (40.0-54.0) % MCV 88.2 (78.0-102.0) fL MCH 30.8 (27.0-31.0) pg MCHC 34.9 (32-36) g/dL RDW 12.0 (11.6-14.4) % Plt Count 247 (150-420) K/mm3 MPV 10.0 (8.7-11.0) fl Immature Gran % (Auto) 0.5 H (0.0-0.0) % Neut % (Auto) 84.0 H (50.0-70.0) % Lymph % (Auto) 12.0 L (18.0-42.0) % [place] % (Auto) 3.1 (2.0-11.0) % Eos % (Auto) 0.3 L (1.0-6.0) % Baso % (Auto) 0.1 (0.0-1.0) % Lymph # (Auto) 1.18 (1.10-4.50) K/mm3 [place] # (Auto) 0.30 (0.10-0.90) K/mm3 Eos # (Auto) 0.03 (0.02-0.50) K/mm3 Baso # (Auto) 0.01 (0.00-0.10) K/mm3 Abs Immat Gran (auto) 0.05 H (0.00-0.00) K/mm3 Absolute Neuts (auto) 8.26 H (1.70-7.20) K/mm3 Absolute Nucleated RBC 0.00 (0.00-0.00) K/mm3 Nucleated RBC % 0.0 (0-0.0) % Sodium 142 (137-145) mmol/L Potassium 3.9 (3.4-5.0) mmol/L Chloride 106 (98-107) mmol/L Carbon Dioxide 26 (22-30) mmol/L Anion Gap 10 (4-12) mmol/L BUN 15 (9-20) mg/dL Creatinine 1.08 (0.7-1.3) mg/dL Estim Creat Clear Calc 87 ml/min Estimated GFR > 60 (59 - ) Glucose 121 H (65-110) mg/dL Calculated Osmolality 295 (285-295) mOsm/kg Calcium 8.6 (8.4-10.2) mg/dL Magnesium 2.2 (1.6-2.3) mg/dL Total Bilirubin 0.4 (0.2-1.3) mg/dL AST 31 (17-59) U/L ALT 39 (6-50) U/L Alkaline Phosphatase 80 (38-126) U/L Total Protein 8.0 (6.3-8.2) g/dL Albumin 4.6 (3.5-5.1) g/dL TSH (Reflex) 2.220 (0.465-4.68) uIU/mL Urine Color Light yellow (Yellow) Urine Appearance Clear (Clear) Urine pH 5.5 (5.0-8.0) Ur Specific [place] 1.025 H (1.010-1.020) Urine Protein Negative (Negative) Urine Glucose (UA) Negative (Negative) Urine Ketones Negative (Negative) Ur Blood (Man) Negative (Negative) Urine Nitrate Negative (Negative) Urine Bilirubin Negative (Negative) Urine Urobilinogen 0.2 (0.2-1.0) mg/dL Leukocyte Esterase Rfl Negative (Negative) AMARJIT/UL Urine Opiates Screen Negative (Negative) Urine Methadone Screen Negative (Negative) Acetaminophen < 10 L (10-30) ug/mL Ur Barbiturates Screen Negative (Negative) Ur Phencyclidine Scrn Negative (Negative) Ur Amphetamine Screen Negative (Negative) U Benzodiazepines Scrn Negative (Negative) Urine Cocaine Screen Negative (Negative) U Cannabinoids Screen Positive A (Negative) Ethyl Alcohol 270 98 (<10) mg/dL Influenza A (RT-PCR) Negative (Negative) Influenza B (RT-PCR) Negative (Negative) RSV (RT-PCR) Negative (Negative) SARS-CoV-2 RNA (RT-PCR) Negative (Negative) 01/30/25 Range/Units 09:33 WBC (4.8-10.8) K/mm3 RBC (4.70-6.10) M/mm3 Hgb (14.0-18.0) g/dL Hct (40.0-54.0) % MCV (78.0-102.0) fL MCH (27.0-31.0) pg MCHC (32-36) g/dL RDW (11.6-14.4) % Plt Count (150-420) K/mm3 MPV (8.7-11.0) fl Immature Gran % (Auto) (0.0-0.0) % Neut % (Auto) (50.0-70.0) % Lymph % (Auto) (18.0-42.0) % [place] % (Auto) (2.0-11.0) % Eos % (Auto) (1.0-6.0) % Baso % (Auto) (0.0-1.0) % Lymph # (Auto) (1.10-4.50) K/mm3 [place] # (Auto) (0.10-0.90) K/mm3 Eos # (Auto) (0.02-0.50) K/mm3 Baso # (Auto) (0.00-0.10) K/mm3 Abs Immat Gran (auto) (0.00-0.00) K/mm3 Absolute Neuts (auto) (1.70-7.20) K/mm3 Absolute Nucleated RBC (0.00-0.00) K/mm3 Nucleated RBC % (0-0.0) % Sodium (137-145) mmol/L Potassium (3.4-5.0) mmol/L Chloride (98-107) mmol/L Carbon Dioxide (22-30) mmol/L Anion Gap (4-12) mmol/L BUN (9-20) mg/dL Creatinine (0.7-1.3) mg/dL Estim Creat Clear Calc ml/min Estimated GFR (59 - ) Glucose (65-110) mg/dL Calculated Osmolality (285-295) mOsm/kg Calcium (8.4-10.2) mg/dL Magnesium (1.6-2.3) mg/dL Total Bilirubin (0.2-1.3) mg/dL AST (17-59) U/L ALT (6-50) U/L Alkaline Phosphatase (38-126) U/L Total Protein (6.3-8.2) g/dL Albumin (3.5-5.1) g/dL TSH (Reflex) (0.465-4.68) uIU/mL Urine Color (Yellow) Urine Appearance (Clear) Urine pH (5.0-8.0) Ur Specific [place] (1.010-1.020) Urine Protein (Negative) Urine Glucose (UA) (Negative) Urine Ketones (Negative) Ur Blood (Man) (Negative) Urine Nitrate (Negative) Urine Bilirubin (Negative) Urine Urobilinogen (0.2-1.0) mg/dL Leukocyte Esterase Rfl (Negative) AMARJIT/UL Urine Opiates Screen (Negative) Urine Methadone Screen (Negative) Acetaminophen (10-30) ug/mL Ur Barbiturates Screen (Negative) Ur Phencyclidine Scrn (Negative) Ur Amphetamine Screen (Negative) U Benzodiazepines Scrn (Negative) Urine Cocaine Screen (Negative) U Cannabinoids Screen (Negative) Ethyl Alcohol 56 (<10) mg/dL Influenza A (RT-PCR) (Negative) Influenza B (RT-PCR) (Negative) RSV (RT-PCR) (Negative) SARS-CoV-2 RNA (RT-PCR) (Negative) <Adriano Santos MD - Last Filed: 01/30/25 12:26> Critical Care Time Critical Care Time Critical Care Time: No <Billy Busch MD - Last Filed: 01/30/25 06:23> Discharge Plan Discharge Clinical Impression: Stress reaction, Alcoholism Dog bite Qualifiers: Encounter type: initial encounter Qualified Code(s): W54.0XXA - Bitten by dog, initial encounter <Billy Busch MD - Last Filed: 01/30/25 06:23> Patient Disposition: Home <Billy Busch MD - Last Filed: 01/30/25 06:23> Condition: Stable <Billy Busch MD - Last Filed: 01/30/25 06:23> Instructions: Antibiotic Form, Animal Bite (ED), Help Prevent Suicide (ED) <Billy Busch MD - Last Filed: 01/30/25 06:23> Patient Language: Yi <Billy Busch MD - Last Filed: 01/30/25 06:23> Prescriptions: New amoxicillin-pot clavulanate [Augmentin] 500-125 mg tablet 1 tablet PO BID 10 Days Qty: 20 0RF <Billy Busch MD - Last Filed: 01/30/25 06:23> Follow-up/Referrals: UNKNOWN,DOCTOR [Primary Care Provider] - <Billy Busch MD - Last Filed: 01/30/25 06:23> Time of Disposition: 12:25 <Billy Busch MD - Last Filed: 01/30/25 06:23> 12:25 <Adriano Santos MD - Last Filed: 01/30/25 12:26>
--- NOTE | 2025-01-29 23:30 | PC.NURSE ---
sitter at bedside for patient safety, moved to ED room 5 (safe room) after initial exam of dog bite completed by ERP patient belongings secured and release form completed.
[2025-01-29] MEDS: TETANUS,DIPHTHERIA,AC PERTUSSIS ADULT 0.5 ML (ADACEL) IM (23:37)
[2025-01-29 23:45] LABS: Basophils Absolute Auto 0.01 K/mm3 (0.00-0.10); Basophils Percent Auto 0.1 % (0.0-1.0); Eosinophils Absolute Auto 0.03 K/mm3 (0.02-0.50); Eosinophils Percent Auto 0.3 % (1.0-6.0); Hematocrit 43.3 % (40.0-54.0); Hemoglobin 15.1 g/dL (14.0-18.0); Immature Granulocyte Absolute 0.05 K/mm3 (0.00-0.00); Immature Granulocyte Percent A 0.5 % (0.0-0.0); Lymphocytes Absolute Auto 1.18 K/mm3 (1.10-4.50); Mean Corpuscular HGB Conc 34.9 g/dL (32-36); Mean Corpuscular Hemoglobin 30.8 pg (27.0-31.0); Mean Corpuscular Volume 88.2 fL (78.0-102.0); Monocytes Percent Auto 3.1 % (2.0-11.0); Neutrophils Absolute Auto 8.26 K/mm3 (1.70-7.20); Platelet Count Result 247 K/mm3 (150-420); Red Blood Count 4.91 M/mm3 (4.70-6.10); White Blood Count 9.8 K/mm3 (4.8-10.8)
[2025-01-29 23:55] LABS: Acetaminophen < 10 ug/mL (10-30); Ethanol 270 mg/dL (<10)
[2025-01-30 00:04] LABS: Sodium 142 mmol/L (137-145)
--- NOTE | 2025-01-30 00:04 | PC.NURSE ---
patient given sandwich, fruit, chips and water at this time. spouse at bedside. update provided. audio video technician at bedside for safety.
[2025-01-30 00:05] LABS: Alanine Aminotransferase 39 U/L (6-50); Anion Gap 10 mmol/L (4-12); Aspartate Amino Transferase 31 U/L (17-59); Bilirubin,Total 0.4 mg/dL (0.2-1.3); Blood Urea Nitrogen 15 mg/dL (9-20); Calcium 8.6 mg/dL (8.4-10.2); Carbon Dioxide 26 mmol/L (22-30); Chloride 106 mmol/L (98-107); Estimated CRCL calculation 87 ml/min; Estimated Glomerular Filt Rate > 60; Glucose 121 mg/dL (65-110); Osmolality Calculated 295 mOsm/kg (285-295); Potassium 3.9 mmol/L (3.4-5.0)
[2025-01-30 00:06] LABS: Albumin Level 4.6 g/dL (3.5-5.1); Alkaline Phosphatase 80 U/L (38-126)
[2025-01-30 00:16] LABS: Magnesium 2.2 mg/dL (1.6-2.3)
[2025-01-30 00:18] LABS: Add Urine Microscopic? NO; Appearance Urine Clear (Clear); Bilirubin Urine Negative (Negative); Blood Urine Negative (Negative); Color Urine Light Yellow (Yellow); Glucose Urine UA Negative (Negative); Ketones Urine Negative (Negative); Leukocyte Esterase Ur Negative LEU/UL (Negative); Nitrate Urine Negative (Negative); Protein Urine Negative (Negative); Specific Grav Ur 1.025 (1.010-1.020); Urobilinogen Urine 0.2 mg/dL (0.2-1.0); pH Urine 5.5 (5.0-8.0)
--- NOTE | 2025-01-30 00:34 | PC.NURSE ---
patient sitting on bed in ED 5 with health and safety specialist and spouse at bedside. VSS. RN monitoring. patient update provided including EtOH level and plan of care with repeat EtOH level to be performed several hours from now. patient encouraged to eat and rest. tearful and apologetic to spouse. calm and cooperative. all inquiries addressed per RN at this time. lights dimmed for comfort and TV on per request.
[2025-01-30 00:36] VITALS: BP 133/92; PULSE 102; RESP 18; TEMP 36.1; O2SAT 94
[2025-01-30 00:37] LABS: Amphetamine Screen Urine Negative (Negative); Barbiturate Screen Urine Negative (Negative); Benzodiazepines Screen Urine Negative (Negative); Cannabinoid Screen Urine Positive (Negative); Cocaine Screen Urine Negative (Negative); Methadone Screen Urine Negative (Negative); Opiate Screen Urine Negative (Negative); Phencyclidine Screen Urine Negative (Negative)
[2025-01-30 00:47] LABS: Influenza A QL RT-PCR Negative (Negative); Influenza B QL RT-PCR Negative (Negative); RSV RNA, RT-PCR Negative (Negative); SARS-CoV-2 RNA PCR Negative (Negative)
[2025-01-30] MEDS: ONDANSETRON HCL ODT 4 MG TABLET PO ×2 (02:06→07:33)
--- NOTE | 2025-01-30 02:07 | PC.NURSE ---
patient awake at this time, states he is feeling nauseated. patient medicated, see MAR. spouse remains at bedside. fire alarm technician at bedside for safety equipment tester. patient awaiting lab redraw and then mental health eval. RN monitoring.
[2025-01-30 02:21] VITALS: BP 130/80; PULSE 107; RESP 18; TEMP 36; O2SAT 97
[2025-01-30 04:00] VITALS: BP 133/57; PULSE 110; RESP 18; TEMP 36; O2SAT 98
--- NOTE | 2025-01-30 04:05 | PC.NURSE ---
patient resting on bed in ED 5 without distress. calm and cooperative. sitter at bedside for patient safety.
--- NOTE | 2025-01-30 06:14 | PC.NURSE ---
patient ambulatory to bathroom at this time.
--- NOTE | 2025-01-30 07:21 | PC.NURSE ---
patient report given to HEMAL Escalona on day shift for continuation of care. patient awake and alert resting on bed in ED 5 with spouse and sitter at bedside. [facility] at bedside for mental health evaluation.
[2025-01-30 07:40] LABS: Ethanol 98 mg/dL (<10)
[2025-01-30 09:27] VITALS: BP 178/87; PULSE 101; RESP 18; TEMP 35.8; O2SAT 95
[2025-01-30 09:46] LABS: Ethanol 56 mg/dL (<10)
--- NOTE | 2025-01-30 09:57 | PC.NURSE ---
Anil melo called for evaluation.
--- NOTE | 2025-01-30 10:42 | PC.NURSE ---
constance melo at bedside with patient.
[2025-01-30 12:24] VITALS: BP 179/99; PULSE 91; RESP 14; TEMP 35.9; O2SAT 96
[2025-01-30 12:30] VITALS: BP 179/99; PULSE 91; RESP 14; TEMP 35.9; O2SAT 96
== END 2025-01-30 12:30 | disposition home or self-care (01) ==
PROVIDERS: Emergency Medicine; Emergency Provider Emergency Medicine
DX: F43.9 Reaction to severe stress, unspecified (principal); F10.20 Alcohol dependence, uncomplicated; Y90.9 Presence of alcohol in blood, level not specified; R45.851 Suicidal ideations; W54.0XXA Bitten by dog, initial encounter; Z20.822 Contact with and (suspected) exposure to COVID-19
CPT/HCPCS: 36415; 80053; 80143; 80307; 81003; 82077; 83735; 84443; 85025; 87637; 90471; 90715; 93005; 99284; A9270

== ENCOUNTER 2025-02-11 07:54 | Emergency (ER) | payer OTHER, SELFPAY ==
[2025-02-11 07:56] VITALS: BP 157/99; PULSE 95; RESP 16; TEMP 36.4; O2SAT 97
--- NOTE | 2025-02-11 07:58 | ED.SKABFB ---
HPI - Skin/Abscess/Foreign Bdy General Chief complaint: Skin/Abscess/Foreign Body Stated complaint: Cyst on Back Time Seen by Provider: 02/11/25 07:57 Source: patient Mode of arrival: ambulatory Limitations: no limitations History of Present Illness HPI narrative: 39-year-old male with a cyst (for many years) on the right side of the spine in the interscapular region presents to the ED with -- increase in the size of the cyst with tenderness. this increase in size happened over the past 5 days. no drainage. No fever or chills. complaint: other ( Cyst on the right interscapular region) Onset (ago): day(s) ( Five days) Tetanus up to date: yes Severity scale (1-10): 5 Quality: aching Pain Consistency: constant Relieving factors: none Exacerbating factors: none Associated symptoms: denies other symptoms Treatments prior to arrival: none Related Data Home Medications ?Medication ?Instructions ?Recorded ?Confirmed ?Last Taken ?Type acetaminophen 300 mg-codeine 30 mg tablet 02/11/25 Unknown History tablet bupropion HCl 150 mg 24 hr tablet, mg PO 02/11/25 Unknown History extended release (Wellbutrin XL) Allergies Allergy/AdvReac Type Severity Reaction Status Date / Time No Known Allergies Allergy Verified 02/11/25 07:58 Review of Systems Review of Systems: All systems reviewed & are unremarkable except as noted in HPI and below PMFSH Past Medical History Medical History No pertinent past medical history Surgical History Surgical History No history of previous surgery Social History Social History Substance use type: does not use Exam Narrative: pressure 157/99 afebrile Const: General: no acute distress Orientation/consciousness: patient oriented x3 Limitations: no limitations HENMT: Head: normal to inspection Ears: external ears normal Face/Nose/Sinus: Normal external nose present Face and sinus: normal facial exam Mouth: Yes Normal oral and palatal mucosa present Throat: posterior oropharynx normal Eyes: Conjunctivae: conjunctivae normal Pupils: Equal, round and reactive pupils present EOM: EOMs intact bilaterally Direct Ophthalmoscopy: no photophobia Neck: Neck: normal visual inspection, no lymphadenopathy and no meningeal signs Chest: Chest palpation & inspection: normal inspection of the chest Resp: Effort & Inspection: normal respiratory effort Auscultation: clear to auscultation bilaterally Cardio: Rate: regular rate Rhythm: regular rhythm GI: GI Palp: Yes Soft to palpation Auscultation: normal bowel sounds : General: Yes no CVA tenderness Back/Spine/Pelvis: Back: no CVA tenderness Skin: Other: right interscapular region has an induration measuring 9 cm with a central 2 cm region which is soft. Tender on palpation. Erythematous Neuro: General: patient oriented x3, moves all extremities, no meningeal signs, no focal motor deficits and CN's II-XI intact bilaterally Speech: normal speech Extrem: General: normal to inspection and no clubbing, cyanosis or edema Psych: Mental Status: mental status grossly normal Affect: normal affect Attitude: cooperative Course Course Emergency Course: infected sebaceous cyst-- will refer to surgeon. Will start the patient on Augmentin. Patient had an unremarkable blood work on 01/29/2025. For now would get blood cultures. call the surgeon to make an appointment. Vital Signs Vital signs: Vital Signs Temperature 36.4 C L 02/11/25 07:56 Pulse Rate 95 02/11/25 07:56 Respiratory Rate 16 02/11/25 07:56 Blood Pressure 157/99 H 02/11/25 07:56 Pulse Oximetry 97 02/11/25 07:56 Oxygen Delivery Room Air 02/11/25 07:56 Temperature 36.4 C L 02/11/25 07:56 Pulse Rate 95 02/11/25 07:56 Respiratory Rate 16 02/11/25 07:56 Blood Pressure 157/99 H 02/11/25 07:56 Pulse Oximetry 97 02/11/25 07:56 Oxygen Delivery Room Air 02/11/25 07:56 MDM - Skin/Abscess/Foreign Bdy MDM Narrative Medical decision making narrative: Infectious sebaceous cyst Differential Diagnosis Differential diagnosis: Likely abscess of skin or subcutaneous tissue Discharge Plan Discharge Clinical Impression: Sebaceous cyst Patient Disposition: Home Condition: Stable Instructions: Antibiotic Form, Cyst (ED) Patient Language: Czech Prescriptions: New amoxicillin-pot clavulanate 875-125 mg tablet 1 tablet PO Q12H Qty: 14 0RF No Action acetaminophen-codeine 300-30 mg tablet bupropion HCl [Wellbutrin XL] 150 mg tablet extended release 24 hr PO Follow-up/Referrals: Levon Cantu MD [Primary Care Provider] - Stand Alone Forms: Work/School Release IP Time of Disposition: 08:14
--- OUTSIDE RECORDS SUMMARY | 2025-02-11 08:03 | XMS_ITS | Referral Summary ---
Author Organization [facility] Address [address] [place] [address] Care Team Providers Care Search Analyst Name Role Phone No, Physician Primary Care Provider Allergies No known active allergies Medications ALPRAZolam [...] of Treatment Not on file Insurance [facility] Advance Directives For more information, please contact: [phone] * Full Code (Latest Code Status on File) Date Activated Date Inactivated Comments 06/10/2021 11:26 AM 06/10/2021 5:25 PM * Full Code Date Activated Date Inactivated Comments 06/10/2021 11:26 AM 06/10/2021 11:26 AM Care Teams Search Analyst Relationship Specialty Start Date End Date No, Physician PCP - General 04/29/21
--- OUTSIDE RECORDS SUMMARY | 2025-02-11 08:03 | XMS_ITS | Encounter Summary ---
Author Organization [facility] Health Address [address] [place] [address] Care Team Providers Care Automotive Product Specialist Name Role Phone Nopcp, Patient Primary Care Provider Unavailterri e Ronal Elizondo MD Primary Care Provider [phone] Ronal Elizondo MD Unavailable [phone] Encounter Details Date Type Department Care Team (Late st Contact Info) Description 02/08/2009 [facility] Outpatient Visit HC Default [address] [place] [id number] Unknown, Provider Social History Tobacco Use Types Packs/Day Years Used Date Smoking Tobacco: Every Day Cigarettes 1 9 Alcohol Use Standard Drinks/Week Comments Yes 0 (1 standard drink = 0.6 oz pur e alcohol) Sex and Gender Information Value Date Recorded Sex Assigned at Not on file 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
--- OUTSIDE RECORDS SUMMARY | 2025-02-11 08:03 | XMS_ITS | Clinical Summary ---
Author Organization [facility] [employer] Address [address] [place] [address] Care Team Providers Care Pneumatic Tool Repairer Name Role Phone Unavailable Primary Care Provider Unavailabl e Source Comments [facility],non-owned Affiliates and Associated Physician Practices is amultiple site organization consisting of ambulatory clinics and hospital sitesin [place], [place], [place] and [place]. This disclosure is being madepursuant to the Care Everywhere program and may not contain all information available regarding this patient. 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 Not on file Not on file makes gourmet fudge and popcorn Not on file Not on fi le Not on file Last Filed Vital Signs Vital Sign Reading Time Taken Comments Blood Pressure 153/101 10/09/2023 11:34 AM GUEST SERVICES LEAD Pulse 92 10/09/2023 11:34 AM GUEST SERVICES LEAD Temperature 36.6 C (97.9 F) 10/09/2023 11:34 AM GUEST SERVICES LEAD Respiratory Rate 16 12/05/2016 8:57 AM CDT Oxygen Saturation 98% 10/09/2023 11:34 AM GUEST SERVICES LEAD Inhaled Oxygen Concentration - - Weight 97.5 kg (215 lb) 10/09/2023 11:34 AM GUEST SERVICES LEAD Height 167.6 cm (5' 6) 10/09/2023 11:34 AM GUEST SERVICES LEAD Body Mass Index 34.7 10/09/2023 11:34 AM GUEST SERVICES LEAD Plan of Treatment Health Maintenance Due Date [...] 12:59 PM CDT Narrative Resulting Agency Comment [facility] [address] [place] [address] [phone] us Ronal Elizondo MD LAB - CHEMISTRY ORDERABLES Fi nal Result Performing Organization Address [facility] de Phone Number [facility] ACCOUNT BILL [address] [place] [address] * (ABNORMAL) LIPID PROFILE (02/15/2016 11:07 AM [...] 12:59 PM CDT Narrative Resulting Agency Comment [facility] [address] [place] [phone] Ronal Elizondo MD LAB - CHEMISTRY ORDERABLES Fi nal Result Performing Organization Address [facility] de Phone Number [facility] ACCOUNT BILL [address] [place] [address] from Last 3 Months or Most Recently Relevant to Health Maintenance Insurance Advance Directives * Full Code (Latest Code Status on File) Date Activated Date Inactivated Comments 05/25/2011 10:27 AM Unplug if lilly PADILLA is Kenyetta Decker. Would do organ donation.
--- OUTSIDE RECORDS SUMMARY | 2025-02-11 08:03 | XMS_ITS | Clinical Summary ---
Author Organization [facility] Address [address] [place] [address] Care Team Providers Care Corrosion Technician Name Role Phone No, Physician Primary Care Provider [phone] Allergies No known active allergies Medications ALPRAZolam [...] Plan of Treatment Not on file Insurance [facility] Advance Directives For more information, please contact: [phone] * Full Code (Latest Code Status on File) Date Activated Date Inactivated Comments 06/10/2021 11:26 AM 06/10/2021 5:25 PM * Full Code Date Activated Date Inactivated Comments 06/10/2021 11:26 AM 06/10/2021 11:26 AM Care Teams Corrosion Technician Relationship Specialty Start Date End Date No, Physician PCP - General 04/29/21
--- OUTSIDE RECORDS SUMMARY | 2025-02-11 08:43 | XMS_ITS | Clinical Summary ---
Author Organization [facility] Address [address] [place] [address] Care Team Providers Care Software Configuration Specialist Name Role Phone No, Physician Primary Care Provider [phone] Allergies No known active allergies Medications ALPRAZolam [...] Plan of Treatment Not on file Insurance [facility] Advance Directives For more information, please contact: [phone] * Full Code (Latest Code Status on File) Date Activated Date Inactivated Comments 06/10/2021 11:26 AM 06/10/2021 5:25 PM * Full Code Date Activated Date Inactivated Comments 06/10/2021 11:26 AM 06/10/2021 11:26 AM Care Teams Software Configuration Specialist Relationship Specialty Start Date End Date No, Physician PCP - General 04/29/21
--- OUTSIDE RECORDS SUMMARY | 2025-02-11 08:43 | XMS_ITS | Encounter Summary ---
Author Organization [facility] Health Address [address] [place] [address] Care Team Providers Care Vascular Specialists Name Role Phone Nopcp, Patient Primary Care Provider Unavailterri e Ronal Elizondo MD Primary Care Provider [phone] Ronal Elizondo MD Unavailable [phone] Encounter Details Date Type Department Care Team (Late st Contact Info) Description 02/08/2009 [facility] Outpatient Visit HC Default [address] [place] [id number] Unknown, Provider Social History Tobacco Use Types Packs/Day Years Used Date Smoking Tobacco: Every Day Cigarettes 1 9 Alcohol Use Standard Drinks/Week Comments Yes 0 (1 standard drink = 0.6 oz pur e alcohol) Sex and Gender Information Value Date Recorded Sex Assigned at Not on file 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
--- OUTSIDE RECORDS SUMMARY | 2025-02-11 08:43 | XMS_ITS | Clinical Summary ---
Author Organization [employer] [facility] Address [address] [place] [address] Care Team Providers Care Park Services Specialist Name Role Phone Unavailable Primary Care Provider Unavailabl e Source Comments [facility],non-owned Affiliates and Associated Physician Practices is amultiple site organization consisting of ambulatory clinics and hospital sitesin [place], [place], [place]. This disclosure is being madepursuant to the Care Everywhere program and may not contain all information available regarding this patient. 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 Not on file Not on file makes gourmet fudge and popcorn Not on file Not on fi le Not on file Last Filed Vital Signs Vital Sign Reading Time Taken Comments Blood Pressure 153/101 10/09/2023 11:34 AM DROP FORGER Pulse 92 10/09/2023 11:34 AM DROP FORGER Temperature 36.6 C (97.9 F) 10/09/2023 11:34 AM DROP FORGER Respiratory Rate 16 12/05/2016 8:57 AM CDT Oxygen Saturation 98% 10/09/2023 11:34 AM DROP FORGER Inhaled Oxygen Concentration - - Weight 97.5 kg (215 lb) 10/09/2023 11:34 AM DROP FORGER Height 167.6 cm (5' 6) 10/09/2023 11:34 AM DROP FORGER Body Mass Index 34.7 10/09/2023 11:34 AM DROP FORGER Plan of Treatment Health Maintenance Due Date [...] 12:59 PM CDT Narrative Resulting Agency Comment [facility] [address] [place] [phone] us Ronal Elizondo MD LAB - CHEMISTRY ORDERABLES Fi nal Result Performing Organization Address [facility] de Phone Number [facility] ACCOUNT BILL [address] [place] [address] * (ABNORMAL) LIPID PROFILE (02/15/2016 11:07 AM [...] 12:59 PM CDT Narrative Resulting Agency Comment [facility] [address] [place] [phone] Ronal Elizondo MD LAB - CHEMISTRY ORDERABLES Fi nal Result Performing Organization Address [facility] de Phone Number [facility] ACCOUNT BILL [address] [place] [address] from Last 3 Months or Most Recently Relevant to Health Maintenance Insurance Advance Directives * Full Code (Latest Code Status on File) Date Activated Date Inactivated Comments 05/25/2011 10:27 AM Unplug if lilly PADILLA is Kenyetta Decker. Would do organ donation.
--- OUTSIDE RECORDS SUMMARY | 2025-02-11 08:43 | XMS_ITS | Referral Summary ---
Author Organization [facility] Address [address] [place] [address] Care Team Providers Care Peanut Blancher Name Role Phone No, Physician Primary Care Provider [phone] Allergies No known active allergies Medications ALPRAZolam [...] Advance Directives For more information, please contact: [phone] * Full Code (Latest Code Status on File) Date Activated Date Inactivated Comments 06/10/2021 11:26 AM 06/10/2021 5:25 PM * Full Code Date Activated Date Inactivated Comments 06/10/2021 11:26 AM 06/10/2021 11:26 AM Care Teams Peanut Blancher Relationship Specialty Start Date End Date No, Physician PCP - General 04/29/21
== END 2025-02-11 08:45 | disposition home or self-care (01) ==
LOC: CHSED 08:27
PROVIDERS: Emergency Provider Internal Medicine Critical Care Medicine; PCP Family Medicine
DX: L72.3 Sebaceous cyst (principal); Z79.899 Other long term (current) drug therapy
CPT/HCPCS: 99283

== ENCOUNTER 2025-02-12 02:22 | Day surgery (SDC) | payer OTHER, SELFPAY ==
[2025-02-11 16:05] VITALS: BMI 33.0
--- NOTE | 2025-02-11 16:09 | PC.NURSE ---
Report to the Outpatient Waiting Room, entrance under the green pavilion located off [facility], at time 1:00 p.m. on date 02/12/2025. Planned Procedure Time: 3:00p.m.? Time changes happen often and if your time is changed the preop area will call you the afternoon before. - You and your visitor will be asked to self-screen and do not enter if you have any COVID symptoms. Please call surgeon if you need to reschedule. - A mask is optional within the hospital at this time. Patients may have clear liquids (water, carbonated beverages, clear teas, apple juice) until 3 hours prior to surgery with a maximum of 20 ounces. - No food from midnight until time of surgery and no smoking, or chewing tobacco (or any form of nicotine). No chewing gum, candy or mints. - Infants may have breast milk until 4 hours before surgery, infant formula 6 hours prior to surgery. - Children will be allowed to drink immediately following surgery.? If applicable, please bring a bottle or sippy cup to assist with drinking. Juice, water, soda, and popsicles are readily available.? For infants on formula, please bring formula the day of surgery.? Pacifiers are allowed. Take only the following medications with a SIP of water on the morning of surgery: amoxicillin, bupropion DO NOT STOP ANY OF YOUR OTHER PRESCRIPTION MEDICATIONS PRIOR TO SURGERY EXCEPT THE FOLLOWING Hold all vitamins and supplements for 3 days per anesthesiologist. Medications to discontinue per physician N/A Date to take last dose N/A Please no make-up, nail tajik, hairspray, perfume, deodorant, or body powder the day of surgery.? No jewelry (including any body piercings) or valuables the day of surgery, leave them at home.? Please take a shower or bath the night before, or the morning of, surgery with an antibacterial soap.? Wear comfortable, loose fitting clothing.? Children are encouraged to wear pajamas. - Jewelry must be removed prior to entering the operating room.? Rings and piercings that are not removed may be cut off. - The hospital will not accept responsibility for valuables.? - Please leave all valuables, including medications, at home the day of surgery. If you are going home after surgery, a licensed haulpak driver must drive you home.? - NO public transportation without another adult if you receive anesthesia. - We recommend that an adult stay with you for 24 hours following discharge. - We also recommend that you do not drive, make important decision, drink alcoholic beverages, or take any drugs that were not prescribed by your health care provider for at least 24 hours after your discharge time. For Pediatric surgeries, we recommend two adults accompany the child home. Follow any additional instructions given to you from your surgeon. Telephone instructions given to Andrew Decker and asked if any additional questions and then verbalized understanding. Patient advised to call surgeon office or pre surgery nurse liaison [phone] if any additional questions.
--- OUTSIDE RECORDS SUMMARY | 2025-02-12 02:25 | XMS_ITS | Encounter Summary ---
Author Organization [facility] Health Address [address] [facility] [place] [address] Care Team Providers Care Resolution Specialist Name Role Phone Nopcp, Patient Primary Care Provider Unavailterri e Ronal Elizondo MD Primary Care Provider [phone] Ronal Elizondo MD Unavailable [phone] Encounter Details Date Type Department Care Team (Late st Contact Info) Description 02/08/2009 [facility] Outpatient Visit HC Default [address] [place] [id number] Unknown, Provider Social History Tobacco Use Types Packs/Day Years Used Date Smoking Tobacco: Every Day Cigarettes 1 9 Alcohol Use Standard Drinks/Week Comments Yes 0 (1 standard drink = 0.6 oz pur e alcohol) Sex and Gender Information Value Date Recorded Sex Assigned at Not on file 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
--- OUTSIDE RECORDS SUMMARY | 2025-02-12 02:25 | XMS_ITS | Clinical Summary ---
Author Organization [employer] Address [address] [place] [address] Care Team Providers Care Carbonizer Name Role Phone Unavailable Primary Care Provider Unavailabl e Source Comments [employer],non-owned Affiliates and Associated Physician Practices is amultiple site organization consisting of ambulatory clinics and hospital sitesin [place], [place], [place] and [place]. This disclosure is being madepursuant to the Care Everywhere program and may not contain all information available regarding this patient. 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 Not on file Not on file makes gourmet fudge and popcorn Not on file Not on fi le Not on file Last Filed Vital Signs Vital Sign Reading Time Taken Comments Blood Pressure 153/101 10/09/2023 11:34 AM SHOP TECH Pulse 92 10/09/2023 11:34 AM SHOP TECH Temperature 36.6 C (97.9 F) 10/09/2023 11:34 AM SHOP TECH Respiratory Rate 16 12/05/2016 8:57 AM CDT Oxygen Saturation 98% 10/09/2023 11:34 AM SHOP TECH Inhaled Oxygen Concentration - - Weight 97.5 kg (215 lb) 10/09/2023 11:34 AM SHOP TECH Height 167.6 cm (5' 6) 10/09/2023 11:34 AM SHOP TECH Body Mass Index 34.7 10/09/2023 11:34 AM SHOP TECH Plan of Treatment Health Maintenance Due Date [...] 12:59 PM CDT Narrative Resulting Agency Comment [facility] [address] [place] [address] [phone] us Ronal Elizondo MD LAB - CHEMISTRY ORDERABLES Fi nal Result Performing Organization Address [facility] de Phone Number [facility] ACCOUNT BILL [address] [place] [address] * (ABNORMAL) LIPID PROFILE (02/15/2016 11:07 AM [...] 12:59 PM CDT Narrative Resulting Agency Comment [facility] [address] [place] [phone] Ronal Elizondo MD LAB - CHEMISTRY ORDERABLES Fi nal Result Performing Organization Address [facility] de Phone Number [facility] ACCOUNT BILL [address] [place] [address] from Last 3 Months or Most Recently Relevant to Health Maintenance Insurance Advance Directives * Full Code (Latest Code Status on File) Date Activated Date Inactivated Comments 05/25/2011 10:27 AM Unplug if lilly PADILLA is Kenyetta Decker. Would do organ donation.
--- OUTSIDE RECORDS SUMMARY | 2025-02-12 02:25 | XMS_ITS | Referral Summary ---
Author Organization [facility] Address [address] [place] [address] Care Team Providers Care Material Handler Floorperson Name Role Phone No, Physician Primary Care [...] Treatment Not on file Insurance [facility] Advance Directives For more information, please contact: [phone] * Full Code (Latest Code Status on File) Date Activated Date Inactivated Comments 06/10/2021 11:26 AM 06/10/2021 5:25 PM * Full Code Date Activated Date Inactivated Comments 06/10/2021 11:26 AM 06/10/2021 11:26 AM Care Teams Material Handler Floorperson Relationship Specialty Start Date End Date No, Physician PCP - General 04/29/21
--- OUTSIDE RECORDS SUMMARY | 2025-02-12 02:25 | XMS_ITS | Clinical Summary ---
Author Organization [facility] Address [address] [place] [address] Care Team Providers Care Cross Tie Cutter Name Role Phone No, Physician Primary Care Provider [phone] Allergies No known active allergies Medications ALPRAZolam [...] Plan of Treatment Not on file Insurance [facility] Advance Directives For more information, please contact: [phone] * Full Code (Latest Code Status on File) Date Activated Date Inactivated Comments 06/10/2021 11:26 AM 06/10/2021 5:25 PM * Full Code Date Activated Date Inactivated Comments 06/10/2021 11:26 AM 06/10/2021 11:26 AM Care Teams Cross Tie Cutter Relationship Specialty Start Date End Date No, Physician PCP - General 04/29/21
[2025-02-12 12:50] VITALS: BP 133/98; PULSE 86; RESP 14; TEMP 36.7; O2SAT 100; BMI 33.0
[2025-02-12] MEDS: LACTATED RINGERS 1,000 ML 30 ML IV CONT (13:15)
--- NOTE | 2025-02-12 14:56 | P.PNAN_ITS ---
Anes - Initial Pre Proc Eval Procedure: Operation Date: 02/12/25 15:00 Proposed Procedures p Incision and Drainage of Right Upper Back Sebaceous Cyst - Beck Evans MD Date/Time: 02/12/25 14:56 Surgeon: Beck Evans MD Pre Op Diagnosis: infected back cyst Patient Data Age: 39 Gender: M Height: 1.68 m Weight: 92.85 kg Last Vital Signs Temp 36.7 C 02/12/25 12:50 Pulse 86 02/12/25 12:50 Resp 14 02/12/25 12:50 BP 133/98 H 02/12/25 12:50 Pulse Ox 100 02/12/25 12:50 O2 Del Method Room Air 02/12/25 12:50 Allergies Allergy/AdvReac Type Severity Reaction Status Date / Time No Known Allergies Allergy Verified 02/12/25 13:43 Home Medications ?Medication ?Instructions ?Recorded ?Confirmed ?Type amoxicillin 875 mg-potassium 1 tablet PO Q12H #14 tabs 02/11/25 02/12/25 Rx clavulanate 125 mg tablet bupropion HCl 150 mg 24 hr tablet, 150 mg PO DAILY 02/11/25 02/12/25 History extended release (Wellbutrin XL) Patient hx anesthesia problems: none Family hx anesthesia problems: none Results Review: All pre-operative results and documents have been reviewed as part of the pre- operative evaluation. [facility] Past Medical History Medical History (Updated 02/12/25 @ 14:57 by Jairon Peña MD) Overweight Snoring Headache Anxiety Surgical History Surgical History No history of previous surgery Family History Family History Father Alcoholism Depression Heart disease Hypertension Carcinoma of colon Sibling Alcoholism Depression Hypertension Carcinoma of colon Mother Depression Hypertension Grandparent Carcinoma of colon Social History Social History Smoking packs per day: 0.75 Smoking cigarettes per day: 15.0 Years smoked: 13 Smoking pack-years: 9.75 Smoking status: Former smoker Tobacco type: smokeless tobacco Smokeless tobacco user: snuff Smoking end date: 02/11/23 Alcohol intake: former Substance use: never Substance use type: does not use Current Housing: Decline to Answer Concerned About Future Housing: Decline to Answer Difficulty Paying Gas/Electric Bills: Decline to Answer Difficulty Paying for Meds: Decline to Answer Currently Unemployed: Decline to Answer Education: Decline to Answer Difficulty w/ Childcare or Family Care: Decline to Answer Living arrangements: with family Occupation/Education: occupation Agree to blood products: Yes Anes - Eval Final PreProcedure Day of Procedure 02/12/25 14:56 Patient weight: overweight Heart: regular rate and rhythm Lungs: clear to auscultation Airway: Mallampati scale class II Neurological: alert and oriented Last oral intake: >/= 8 hours ASA classification: II Emergent: no Anesthetic plan: proceed Anesthesia type and monitoring: general GIVS and standard monitoring Results Review: All pre-operative results and documents have been reviewed as part of the pre- operative evaluation. Informed Consent: The patient's anesthetic plan and its attendant risks and benefits were discussed with the patient/family/POA. Questions were solicited and answers provided to the satisfaction of the patient/family/POA.
--- NOTE | 2025-02-12 15:24 | WPDHPUPDATE1 ---
History and Physical Update Update Date/Time: 02/12/25 15:24 History and Physical has been reviewed, including an updated exam of the patient. There are NO changes in the patient's condition. Risks, benefits, and alternatives have been discussed and questions answered. Patient agrees to proceed with procedure.
[2025-02-12] MEDS: ceFAZolin 2 GM/D5W 50 ML 2 GM/50 ML BAG IVPB (15:33)
[2025-02-12] MEDS: LIDO 1%/EPINEPHRINE 1:100,000 20 ML VIAL 10 ML INFILTRATE (15:48)
[2025-02-12] MEDS: BUPivacaine HCL 0.5% 10 ML AMP INFILTRATE (15:49)
[2025-02-12] MEDS: KETOROLAC 30 MG/ML VIAL (*BKC) IV PUSH (16:01)
[2025-02-12 16:06] VITALS: BP 117/56; PULSE 97; RESP 14; O2SAT 98
--- NOTE | 2025-02-12 16:15 | W.PM.PROC2 ---
Procedure Note - Detailed Date of Procedure 02/12/25 Pre-op Diagnosis Infected right upper back sebaceous cyst Post-op Diagnosis Same Procedure Performed Simple incision and drainage of right upper back infected sebaceous cyst. Surgeon Beck Evans MD Recovery Unit Operator Jes Medina PA-C Anesthesia MAC Indications Patient is a 39-year-old male presented yesterday to the office with complaints of increasing redness and pain of infected cyst on the right upper back region. It was too painful to incise and drain in the office and so he presents now for excision and drainage in the operating room under IV sedation. Findings Patient infected cyst in the right upper back region. Copious amounts of sebaceous material a small amount of pus was drained from the abscess and cyst. Description of Procedure After informed consent was obtained patient brought to the operating room was placed under IV sedation and then turned in the left lateral decubitus position on operating table. Lateral positioners were in place and pressure points were well padded. The area the right upper back was then prepped and draped usual sterile fashion. A time-out was then performed correctly identifying the patient as well as procedure to be performed. Site marking was verified. He was given perioperative IV antibiotics. 1% lidocaine mixed with 0.5% Marcaine in a 50 50 mixture some epinephrine was then injected around the cyst for local anesthetic effect. We then made a transverse incision deeply through the dermis skin with a #15 scalpel. Once the infected cyst had been incised small amount of pus drained and then copious amounts of thick whitish sebaceous material was expressed from the cyst cavity. Seema clamp was then used also breakdown loculations and pull out some more sebaceous material. Finger exploration of the cyst cavity revealed no loculations or extensions of the cyst. We then irrigated the cyst with copious a sterile saline solution. Hemostasis was good. The residual cyst wall was left in place to be excised out a later time with infection has resolved. The cavity was then packed tightly with about 2ft of quarter-inch iodoform gauze. Areas then cleaned and then dry 4x4 and ABD and Medipore tape was used for final dressing. The patient tolerated the procedure well no complications. All sponges, needles, and instrument counts were correct at the end procedure. EBL was _5__cc. The patient was awakened and taken to recovery in stable and satisfactory condition. Implants None Estimated Blood Loss 5 Drains No Packing Yes (Quarter-inch iodoform gauze packed in right upper back cyst cavity.) Pathology None sent Complications No immediate complications Condition Stable Disposition Same day [facility] Billing Surgery - Charge Forward: Surgery Billing
[2025-02-12 16:35] VITALS: BP 121/72; PULSE 94; RESP 16; O2SAT 98
[2025-02-12 17:05] VITALS: BP 132/79; PULSE 82; RESP 16
== END 2025-02-12 17:10 | disposition home or self-care (01) ==
PROVIDERS: Visit Provider Surgery
PROC: (CPT 10060; principal; 2025-02-12 15:00)
DX: L72.3 Sebaceous cyst (principal); F41.9 Anxiety disorder, unspecified; Z87.891 Personal history of nicotine dependence; Z80.0 Family history of malignant neoplasm of digestive organs; Z82.49 Family history of ischemic heart disease and other diseases of the circulatory system
CPT/HCPCS: 10060; A9270; J0690; J1885; J2003; J2004; J2250; J2405; J2704; J3010; J7120